=== PATIENT | male | born 1985 | race Caucasian/White ===

== ENCOUNTER 2022-06-25 08:08 | Emergency (ER) | payer OTHER, SELFPAY ==
[2022-06-25 08:11] VITALS: BP 174/86; PULSE 63; O2SAT 100
[2022-06-25 08:15] VITALS: BP 128/70; PULSE 68; RESP 16; TEMP 36.1; O2SAT 98; BMI 25.8
--- NOTE | 2022-06-25 08:33 | ED.GENADULT ---
HPI - General Adult General Chief complaint: Back Pain/Injury Stated complaint: BACK PAIN,NO INJURY PER EMS Time Seen by Provider: 06/25/22 08:33 Source: patient and EMS Mode of arrival: EMS Limitations: no limitations History of Present Illness HPI narrative: Patient is a 36 year old male presenting to the emergency department today with right sided back pain. Patient states that he sat down on his toilet to have a BM when he had sharp right sided back pain. Patient states that as he lays there, the pain is getting much better. Patient states that he was having a similar issue on the left side of his body that radiated into his leg. Patient states he has been seeing his PCP for that issue but not a respiratory care specialist. Patient denies any dizziness, lightheadedness, abdominal pain, nausea, vomiting, fever, chills, blurry vision, double vision, loss of vision, chest pain, difficulty breathing, shortness of breath, night sweats, pain with urination, increased urinary frequency, increased urinary urgency, blood in his urine or stool, syncope or a near syncopal episode, recent trauma or falls, bowel incontinence, bladder incontinence, bowel retention, bladder retention, or any other complaints at this time. Onset (ago): hour(s) Location: back Radiation: non-radiation Severity: mild Severity scale (1-10): 3 Quality: aching Pain Consistency: constant Relieving factors: none Exacerbating factors: movement Associated symptoms: denies other symptoms Treatments prior to arrival: none Related Data Previous Rx's Medication Instructions Recorded cyclobenzaprine 5 mg tablet 5 mg PO TID PRN muscle spasm 7 06/25/22 days #21 tabs Allergies Allergy/AdvReac Type Severity Reaction Status Date / Time amoxicillin AdvReac Gastrointestinal Verified 06/25/22 08:14 Upset Review of Systems Constitutional: Constitutional: Reports no additional constitutional complaints, Denies chills, Denies fever(s) and Denies night sweats Eyes: Eyes: Reports no additional eye complaints, Denies blurry vision, Denies change in vision, Denies diplopia, Denies eye discharge, Denies loss of vision and Denies eye pain ENT: Denies dizziness Cardiovascular: Cardiovascular: Reports no additional cardiovascular complaints, Denies chest pain, Denies lightheadedness, Denies Loss of Consciousness and Denies dyspnea Respiratory: Respiratory: Reports no additional respiratory complaints and Denies dyspnea Gastrointestinal: Gastrointestinal: Reports no additional gastrointestinal complaints, Denies abdominal pain, Denies melena, Denies hematochezia, Denies change in bowel habits and Denies change in stool character Genitourinary: Genitourinary: Reports no additional male genitourinary complaints, Denies hematuria, Denies oliguria, Denies difficulty urinating, Denies dysuria, Denies urinary frequency, Denies urinary hesitancy, Denies urinary incontinence and Denies urinary urgency Musculoskeletal: Musculoskeletal: Reports no additional musculoskeletal complaints, Reports back pain, Denies numbness and Denies tingling Neurologic: Denies dizziness, Denies loss of vision, Denies numbness and Denies tingling Psychiatric: Psychiatric: Reports no additional psychiatric complaints Endocrine: Endocrine: Reports no additional endocrine complaints Hematologic/Lymphatic: Hematologic/Lymphatic: Reports no additional hematologic/lymphatic complaints Allergic/Immunologic: Allergic/Immunologic: Reports no additional allergic/immunologic complaints [facility] Past Medical History Attestation statement: The following information was validated with the patient. Source: old records reviewed Social History Social History Advance Directives: No Advance Directives Information Provided: No Physical Exam ED Vital Signs: Vital Signs - 24 hr 06/25/22 08:15 Temperature 96.9 F Pulse Rate 68 Respiratory Rate 16 Blood Pressure 128/70 Pulse Oximetry 98 Oxygen Delivery Method Room Air BMI result Body Mass Index 25.8 Const General: cooperative, no acute distress, alert and awake Nutritional Appearance: well nourished Orientation/consciousness: patient oriented x3 Limitations: no limitations [facility] Head: Yes normal to inspection and Yes atraumatic Ears: hearing grossly normal bilaterally and external ears normal General nose exam: Normal external nose present, no nasal discharge noted and no epistaxis Face and sinus: Yes normal facial exam, No abrasion and No laceration Mouth: Normal oral and palatal mucosa present, no drooling and no muffled voice Eyes General: appearance normal, both eyes and all related structures Periorbital: periorbital findings normal Eyelids: Yes eyelids normal Conjunctivae: conjunctivae normal Pupils: Equal, round and reactive pupils present EOM: EOMs intact bilaterally Neck Neck: Yes normal visual inspection, Yes full ROM and Yes no lymphadenopathy Chest Chest palpation & inspection: normal inspection of the chest Resp Effort & Inspection: normal respiratory effort and able to speak in complete sentences Auscultation: clear to auscultation bilaterally Cardio Rate: regular rate Rhythm: regular rhythm GI Inspection: Yes normal to inspection General: Yes no CVA tenderness Back/Spine/Pelvis Back: no CVA tenderness Cervical Spine: normal cervical lordosis and cervical ROM normal Thoracic/Lumbar Spine: thoracic and lumbar spine normal to inspection and thoraco-lumbar ROM normal Pelvis: no pain with anterior-posterior compression Neuro General: patient oriented x3 and moves all extremities Cranial nerves: Yes Equal, round and reactive pupils present Cognition (Neuro): normal cognition Motor exam (neuro): 5/5 motor strength present throughout Sensory Exam: Normal double simultaneous stimulation for sensation Coordination: [id number] test normal Extrem General: Yes normal to inspection, Yes full ROM and Yes capillary refill normal Psych Appearance: grossly normal Mental Status: mental status grossly normal Affect: normal affect Attitude: cooperative Thought process: Normal thought process present Thought content: Normal thought content present Insight: Good insight present (Psych) Medical Decision Making MDM Narrative Medical decision making narrative: Patient is a 36 year old male presenting to the emergency department today with right sided back pain. Patient's physical exam was unremarkable. I explained my physical exam findings as well as all test results to the patient. I answered all questions asked by the patient. Patient received PO Flexeril which he stated helped his symptoms significantly. I stressed the importance of the patient taking his medication as prescribed. I stressed the importance of the patient following up with his primary care provider and a respiratory care specialist. I stressed the importance of the patient returning to the emergency department immediately if his symptoms were to worsen or if he were to develop any dizziness, shortness of breath, difficulty breathing, chest pain, blurry vision, loss of vision, nausea, vomiting, abdominal pain, fever, chills, back pain, or any other complaints. Patient verbalized agreement and understanding with this treatment plan and discharge. Differential Diagnosis Differential Diagnosis: back pain Medical Records Medical records reviewed: Yes I reviewed the patient's medical records. Discharge Plan Discharge Clinical Impression: Back pain Patient Disposition: Home, Self-Care Instructions: Back Pain (ED) Additional Instructions: Follow up with your primary care provider and a respiratory care specialist. Return to the emergency department immediately if your symptoms worsen or if you develop any dizziness, shortness of breath, difficulty breathing, chest pain, blurry vision, loss of vision, nausea, vomiting, abdominal pain, fever, chills, back pain, or any other complaints. Prescriptions: New cyclobenzaprine 5 mg tablet 5 mg PO TID PRN (Reason: muscle spasm) 7 Days Qty: 21 0RF Referrals: [facility] [place] Family Medicine [Provider Group] (Call to establish and follow up with a primary care provider. If you already have a primary care provider, please follow up with them. ) [facility] [place] Primary Care, [facility] [Provider Group] (Call to establish and follow up with a primary care provider. If you already have a primary care provider, please follow up with them. ) [facility] [place] [facility] [Provider Group] (Call to establish and follow up with a primary care provider. If you already have a primary care provider, please follow up with them. ) [facility] [Provider Group] (Call to follow up and establish with a respiratory care specialist. ) Stand Alone Forms: Work/School Release Interventions: ED Discharge Assessment Last Done: 06/25/22 09:18 Print Language: [place]
[2022-06-25] MEDS: Cyclobenzaprine HCl 5 MG TABLET PO (09:02)
--- NOTE | 2022-06-25 09:17 | PC.NURSE ---
PT AWAKE, ALERT AND ORIENTED X 3. SKIN WARM AND DRY. REPS UNLABORED. PT AMBULATORY, GCS 15.GAIT STEADY NO ACUTE DISTRESS NOTED EVALUATED BY PROVIDER BLANCA. MEDICATED ORDERED. PLAN IS FOR DC HOME AND PT AGREEABLE
== END 2022-06-25 09:23 | disposition home or self-care (01) ==
PROVIDERS: Emergency Provider Emergency Medicine
DX: M54.50 Low back pain, unspecified (principal)
CPT/HCPCS: 99283

== ENCOUNTER 2022-11-19 20:59 | Emergency (ER) | payer OTHER, SELFPAY ==
[2022-11-19 21:01] VITALS: BP 119/49; PULSE 66; RESP 20; TEMP 36.3; O2SAT 100; BMI 28.8
--- NOTE | 2022-11-19 21:20 | ED.WOUNDLAC ---
HPI - Wound/Laceration General Chief Complaint: Wound/Laceration Stated Complaint: lac of index finger Time Seen by Provider: 11/19/22 21:07 Source: patient Mode of arrival: ambulatory Limitations: no limitations History of Present Illness HPI narrative: this is a 37-year-old male no significant medical history presenting with a laceration to his right index finger status post cutting himself accidentally with a knife while will washing dishes. Patient tells me that he accidentally poked himself with a knife while washing it in the sink. He tells me he felt like he was going to pass out because he passes out when he sees blood. He did not pass out however. He told me he felt lightheaded however that has resolved. Upon patient's arrival wound was cleansed and dressing was applied, as was pressure. Patient is not on blood thinners. Denies numbness, tingling. Tells me he feels fine at this time. Patient freely moving his finger upon history taking. Related Data Previous Rx's Medication Instructions Recorded cyclobenzaprine 5 mg tablet 5 mg PO TID PRN muscle spasm 7 06/25/22 days #21 tabs Allergies Allergy/AdvReac Type Severity Reaction Status Date / Time amoxicillin AdvReac Gastrointestinal Verified 11/19/22 21:06 Upset Review of Systems Review of Systems: Constitutional : No Weight loss, No Fever, No Chills, No Fatigue, No Malaise ENT/Mouth : No sore throat, No Rhinorrhea Eyes: No Eye Pain, No Swelling, No Redness Cardiovascular : No Chest Pain, No SOB, No Dyspnea on Exertion, No Orthopnea, No Edema, No Palpitations Respiratory : No Cough, No Sputum, No Wheezing Gastrointestinal : No Nausea, No Vomiting, No Diarrhea, No Constipation, No abdominal Pain, No Hematochezia, No Melena Genitourinary : No Dysuria, No Urinary Frequency, No Hematuria, Musculoskeletal : No joint pain, No Myalgias, No Joint Swelling Skin : No Skin Lesions, No rash, + laceration Neuro : No Weakness, No Numbness, No Dizziness, No Headache Psych : No Anxiety/Panic, No Depression All other systems reviewed and are negative Yes all other systems are reviewed and are negative [facility] Past Medical History Attestation statement: The following information was validated with the patient. Source: old records reviewed and nursing notes reviewed Social History Social History Advance Directives: No Advance Directives Information Provided: No Physical Exam Vital Signs: Vital Signs: Last Vital Signs Temp 97.3 F 11/19/22 21:01 Pulse 66 11/19/22 21:01 Resp 20 11/19/22 21:01 BP 119/49 L 11/19/22 21:01 Pulse Ox 100 11/19/22 21:01 O2 Del Method 11/19/22 21:01 BMI result Body Mass Index 28.8 Vital signs stable Appearance: Alert.? Oriented X3.? No acute distress.? Head: Normocephalic, atraumatic, no step-offs or deformities Eyes: Pupils equal, round and reactive to light.? ENT: Pharynx normal.? Neck: Normal inspection.? Neck supple.? CVS: Normal heart rate and rhythm.? Pulses normal.? Respiratory: No respiratory distress.? Breath sounds normal.? Abdomen: Soft and nontender.? Skin: Skin warm and dry.? Normal skin color.? Normal skin turgor.? Extremities: 5/5 strength to bilateral upper and lower extremities + 2 cm linear laceration to right dorsal aspect of index finger, without foreign bodies. 2+ radial pulses equal bilateral. Capillary refill less than 2 seconds equal bilateral upper extremities. Full range of motion to all fingers without difficulty. No wrist drop. Neuro: Oriented X 3.? No motor deficit.? No sensory deficit. CN 2-12 intact Course Reevaluation(s) Reevaluation #1: Laceration was repaired using Dermabond, patient tolerated procedure well. Edges approximated nicely. At this time patient will be discharged home with he was placed in a finger splint to prevent him from bending his finger, advised him to keep this on for 24 hours. Educated on worrisome signs and symptoms and when to return. At this time I feel comfortable discharge home. Time: 21:24 Medical Decision Making Medical Decision Making [facility] Narrative: 2121 37-year-old male presents with superficial laceration to right index finger just prior to arrival with knife. Not up-to-date on tetanus shot. No significant medical history is. Denies numbness and tingling 2 cm linear laceration to right dorsal aspect of index finger, without foreign bodies. 2+ radial pulses equal bilateral. Capillary refill less than 2 seconds equal bilateral upper extremities. Full range of motion to all fingers without difficulty. No wrist drop. likely simple laceration. Unlikely foreign body, fracture dislocation. No signs of neurovascular compromise or ligament and tendon injury. Spoke to patient about repair options such as sutures and Dermabond, this is a very superficial laceration therefore I suspect Dermabond is a better option however did offer sutures. Patient would prefer Dermabond. Differential Diagnosis Differential Diagnoses: The differential diagnosis associated with the presentation includes likely simple laceration. Unlikely foreign body, fracture dislocation. No signs of neurovascular compromise or ligament and tendon injury. Admission/Observation Consideration of admission/observation: Escalation of care including admission/observation considered Core Measures AMI core measures followed: Yes Measure exclusions: not indicated Discharge Plan Discharge Clinical Impression: Laceration Patient Disposition: Home, Self-Care Instructions: Laceration Without Closure (ED) Additional Instructions: Take your medications as prescribed. If you were prescribed antibiotics today, it is important that you take your medication to their entirety, do not skip any doses, do not finish them early. Follow-up with your primary care provider this week. Return to the emergency department with new or worsening symptoms. Such as fevers, chills, chest pain, shortness of breath, nausea, vomiting, dizziness, headache, vision changes, lethargy In case of emergency call 911 Prescriptions: No Action cyclobenzaprine 5 mg tablet 5 mg PO TID PRN (Reason: muscle spasm) 7 Days Qty: 21 0RF Referrals: Physician,Unknown J [Primary Care Provider] - 2 days Stand Alone Forms: Work/School Release
[2022-11-19] MEDS: Diphth,Pertus(ACell),Tet Adult 0.5 ML SYRINGE IM (21:26)
--- NOTE | 2022-11-19 21:39 | PC.NURSE ---
wound close with exofin by provider, non stick dressing applied, followed by non-stick dressing. fingersplint and kerlix- pt alert oriented, NAD at discharge, tetanus updated vis given
== END 2022-11-19 21:48 | disposition home or self-care (01) ==
PROVIDERS: Emergency Provider Emergency Medicine Emergency Medical Services
DX: S61.210A Laceration without foreign body of right index finger without damage to nail, initial encounter (principal); W26.0XXA Contact with knife, initial encounter; Y93.G1 Activity, food preparation and clean up; Y92.010 Kitchen of single-family (private) house as the place of occurrence of the external cause; Y99.9 Unspecified external cause status
CPT/HCPCS: 12001; 90471; 90715; 99282; 99284

== ENCOUNTER 2023-10-28 07:57 | Observation (INO) | payer OTHER, SELFPAY ==
--- NOTE | ~2023-10-28 | CT_ITS ---
EXAMINATION: CT HEAD WITHOUT CONTRAST CLINICAL INFORMATION: Weakness COMPARISON: None available. TECHNIQUE: Contiguous axial imaging was performed from the skull base to vertex without intravenous administration of contrast. This CT examination was performed using dose optimization techniques as appropriate, variously including the following: *Automated exposure control *Adjustment of mA and/or kV according to patient size (this includes techniques or standardized protocols for targeted exams where dose is matched to indication/reason for exam; i.e. extremities or head) *Use of iterative reconstruction technique DLP: 648 mGy-cm FINDINGS: There is no intracranial hemorrhage or evidence of acute territorial infarction. There is no mass effect or midline shift. No extra-axial fluid collection. Hassan-white matter differentiation is preserved. The ventricles are normal. The paranasal sinuses are well aerated and clear. The mastoid air cells are clear. No acute osseous abnormality. CT/CT head/brain wo IV con IMPRESSION: No acute intracranial pathology.
--- NOTE | ~2023-10-28 | XR_ITS ---
EXAMINATION: XR CHEST CLINICAL INFORMATION: Weakness COMPARISON: None available. TECHNIQUE: 2 views of the chest were obtained. FINDINGS: No significant abnormality is noted involving the heart, lungs, mediastinum, bony thorax or soft tissues. Elevation of the right hemidiaphragm is noted. XR/XR chest 2V IMPRESSION: No acute cardiopulmonary disease.
[2023-10-28 07:59] VITALS: BP 153/111; PULSE 70; RESP 18; TEMP 36.4; O2SAT 98; BMI 29.8
--- NOTE | 2023-10-28 09:15 | ED_ITS ---
HPI - General Adult General Chief complaint: Fall Stated complaint: fall Time Seen by Provider: 10/28/23 09:14 Source: patient and family (patient's fiance) Mode of arrival: ambulatory Limitations: no limitations History of Present Illness HPI narrative: Patient is a 38 year old assigned male at with a history of left upper leg nerve pain presenting to the emergency department today with fully body weakness and falls. Patient states that he was having left upper leg pain for awhile and following with a product distribution specialist for it where he was diagnosed with left upper leg nerve injury. Patient states that he is on gabapentin for it but it isn't making it better. Patient states that he had an EMG recently that was OK aside from the left upper leg issue. Patient denies any head strike, loss of conciseness, dizziness, lightheadedness, abdominal pain, nausea, vomiting, fever, chills, blurry vision, double vision, loss of vision, chest pain, difficulty breathing, shortness of breath, back pain, night sweats, pain with urination, increased urinary frequency, increased urinary urgency, blood in his urine or stool, syncope or a near syncopal episode, bowel incontinence, bladder incontinence, bowel retention, bladder retention, or any other complaints at this time. Onset (ago): day(s) Severity: mild Relieving factors: none Exacerbating factors: none Associated symptoms: weakness Treatments prior to arrival: none Related Data Previous Rx's Medication Instructions Recorded cyclobenzaprine 5 mg tablet 5 mg PO TID PRN muscle spasm 7 06/25/22 days #21 tabs Allergies Allergy/AdvReac Type Severity Reaction Status Date / Time amoxicillin AdvReac Gastrointestinal Verified 10/28/23 08:04 Upset Review of Systems 2 Constitutional: Constitutional: Reports no additional constitutional complaints, Denies chills, Denies fever(s), Denies night sweats and Reports weakness Eyes: Eyes: Reports no additional eye complaints, Denies blurry vision, Denies change in vision, Denies diplopia, Denies eye discharge, Denies loss of vision and Denies eye pain ENT: Denies dizziness Cardiovascular: Cardiovascular: Reports no additional cardiovascular complaints, Denies chest pain, Denies lightheadedness, Denies Loss of Consciousness and Denies dyspnea Respiratory: Respiratory: Reports no additional respiratory complaints and Denies dyspnea Gastrointestinal: Gastrointestinal: Reports no additional gastrointestinal complaints, Denies abdominal pain, Denies melena, Denies hematochezia, Denies change in bowel habits and Denies change in stool character Genitourinary: Genitourinary: Reports no additional male genitourinary complaints, Denies hematuria, Denies oliguria, Denies difficulty urinating, Denies dysuria, Denies urinary frequency, Denies urinary hesitancy, Denies urinary incontinence and Denies urinary urgency Musculoskeletal: Musculoskeletal: Reports no additional musculoskeletal complaints, Denies numbness and Denies tingling Neurologic: Denies dizziness, Denies loss of vision, Denies numbness, Denies tingling and Reports weakness Psychiatric: Psychiatric: Reports no additional psychiatric complaints Endocrine: Endocrine: Reports no additional endocrine complaints Hematologic/Lymphatic: Hematologic/Lymphatic: Reports no additional hematologic/lymphatic complaints Allergic/Immunologic: Allergic/Immunologic: Reports no additional allergic/immunologic complaints PMFSH Past Medical History Attestation statement: The following information was validated with the patient. Source: old records reviewed and nursing notes reviewed Onset Date is defined in the Problem List Problems that require an onset date and time if occurred within 24 hrs of arrival to the ED Aortic Dissection and Rupture; Neurologic impairment; Cardiopulmonary Arrest; Endotracheal Intubation; Insertion or Replacement of Mechanical Circulatory Assist Device Social History Social History Smoked in Last 30 Days: Yes Use of substances other than those prescribed or required for medical reasons: No Advance Directives: No Physical Exam ED Vital Signs: Vital Signs - 24 hr 10/28/23 07:59 10/28/23 12:00 10/28/23 12:00 Temperature 97.6 F Pulse Rate 70 64 55 Respiratory Rate 18 15 14 Blood Pressure 153/111 H 135/73 Pulse Oximetry 98 98 Oxygen Delivery Method Room Air Room Air 10/28/23 13:53 Temperature 98.4 F Pulse Rate 70 Respiratory Rate 18 Blood Pressure 129/74 Pulse Oximetry 98 Oxygen Delivery Method Room Air BMI result Body Mass Index 29.8 Const General: cooperative, no acute distress, alert and awake Nutritional Appearance: well nourished Orientation/consciousness: patient oriented x3 Limitations: no limitations HENMT Head: Yes normal to inspection and Yes atraumatic Ears: hearing grossly normal bilaterally and external ears normal General nose exam: Normal external nose present, no nasal discharge noted and no epistaxis Face and sinus: Yes normal facial exam, No abrasion and No laceration Mouth: Normal oral and palatal mucosa present, no drooling and no muffled voice Eyes General: appearance normal, both eyes and all related structures Periorbital: periorbital findings normal Eyelids: Yes eyelids normal Conjunctivae: conjunctivae normal Pupils: Equal, round and reactive pupils present EOM: EOMs intact bilaterally Neck Neck: Yes normal visual inspection, Yes full ROM and Yes no lymphadenopathy Chest Chest palpation & inspection: normal inspection of the chest Resp Effort & Inspection: normal respiratory effort and able to speak in complete sentences GI Inspection: Yes normal to inspection Neuro General: patient oriented x3 and moves all extremities Cranial nerves: Yes Equal, round and reactive pupils present Cognition (Neuro): normal cognition Motor exam (neuro): 5/5 motor strength present throughout Sensory Exam: Normal double simultaneous stimulation for sensation Coordination: [id number] test normal Extrem General: Yes normal to inspection, Yes full ROM and Yes capillary refill normal Psych Appearance: grossly normal Mental Status: mental status grossly normal Affect: normal affect Attitude: cooperative Thought process: Normal thought process present Thought content: Normal thought content present Insight: Good insight present (Psych) Course Reevaluation(s) Reevaluation #1: Lower extremities weakness, no urinary or stool incontinence, CPK is elevated patient is receiving IV fluids and K replacement, awaiting for PT evaluation, patient will be admitted for IV hydration and repeat labs and reassessment. Time: 15:00 Medications Administered Discontinued Medications Generic Name Dose Route Start Last Admin Trade Name Freq PRN Reason Stop Dose Admin Sodium Chloride 1,000 mls @ 999 mls/hr 10/28/23 09:30 10/28/23 12:24 Ns IV 10/28/23 10:30 Infused .Q1H1M MARI Infusion Potassium Chloride 10 meq in 100 mls @ 100 mls/hr 10/28/23 11:28 10/28/23 13:15 Potassium Chloride/H20 IV 10/28/23 12:27 Infused ONCE ONE Infusion Sodium Chloride 1,000 mls @ 999 mls/hr 10/28/23 11:29 10/28/23 13:15 Ns IV 10/28/23 12:29 Infused .Q1H1M ONE Infusion Sodium Chloride 1,000 mls @ 999 mls/hr 10/28/23 13:12 10/28/23 14:44 Ns IV 10/28/23 14:12 Infused .Q1H1M ONE Infusion Potassium Chloride 40 meq 10/28/23 11:28 10/28/23 12:12 Potassium Chloride Packet 20 Meq Packet PO 10/28/23 11:29 40 meq ONCE ONE Administration Medical Decision Making Medical Decision Making [facility] Narrative: Patient is a 38 year old assigned male at with a history of left upper leg nerve issue presenting to the emergency department today with weakness. Patient's physical exam showed some weakness but no focal neuro deficits. Patient's blood work showed a decreased potassium of 2.5 and an elevated total CK of 647. Patient's EKG was unremarkable. Patient's chest x-ray and head CT showed no acute process. I consulted with my attending physician, Dr. Herrera, who recommended giving the patient potassium, IV fluids, repeating labs, and then admitting him to the hospitalist. Hospitalist team agreed to admission. I explained my physical exam findings as well as all test results to the patient and the patient's fiance. I answered all questions asked by the patient and the patient's fiance. Patient and the patient's fiance verbalized agreement and understanding with this treatment plan and admission. Differential Diagnosis Differential Diagnoses: The differential diagnosis associated with the presentation includes Rhabdo Weakness Hypokalemia Admission/Observation Consideration of admission/observation: Escalation of care including admission/observation considered Patient to be admitted. Consult Healthcare Provider Management of the patient was discussed with: Hospitalist (agreed to admission.) Lab Data [facility] Lab Attestation statement: I reviewed the patient's lab results. My interpretation of these results are in the MDM Rationale portion of this note. 10/28/23 10:59 10/28/23 10:59 Labs: Lab Results 10/28/23 10/28/23 Range/Units 10:59 11:04 WBC 8.2 (4.8-10.8) X10*3/uL RBC 5.12 (4.60-5.80) X10*6/uL Hgb 14.6 (14.0-18.0) g/dl Hct 42.8 (42.0-52.0) % MCV 83.6 (80.0-98.0) fL MCH 28.5 (27.0-33.0) pg MCHC 34.1 (31.0-36.0) g/dl RDW 12.8 (11.0-16.0) % Plt Count 175 (160-400) X10*3/uL MPV 11.4 (9.4-12.4) fL Immature Gran % (Auto) 1.6 H (0.0-0.4) % Neut % (Auto) 71.6 (45-73) % Lymph % (Auto) 18.0 L (20-40) % [place] % (Auto) 5.1 (2-11) % Eos % (Auto) 3.3 (0-4) % Baso % (Auto) 0.4 (0-2) % Lymph # (Auto) 1.5 (1.2-4.9) X10*3/uL [place] # (Auto) 0.4 (0.1-1.2) X10*3/uL Eos # (Auto) 0.3 (0.0-0.4) X10*3/uL Baso # (Auto) 0.0 (0.0-0.2) X10*3/uL Abs Immat Gran (auto) 0.13 H (0.00-0.03) X10*3/uL Absolute Neuts (auto) 5.9 (2.0-8.3) x10*3/uL Absolute Nucleated RBC 0.000 (0.0-0.012) X10*3/uL Nucleated RBC % (auto) 0.0 (0.0-0.2) /100WBC Sodium 142 (135-145) mmol/L Potassium 2.5 L* (3.3-5.1) mmol/L Chloride 109 H (96-108) mmol/L Carbon Dioxide 27 (22-29) mmol/L Anion Gap 9 L (12-20) BUN 14 (9-16) mg/dL Creatinine 0.77 (0.5-1.4) mg/dL Estim Creat Clear Calc 148.3 Estimated GFR > 60 Random Glucose 116 H (60-115) mg/dL Calcium 8.8 (8.4-10.2) mg/dL Magnesium 1.8 (1.6-2.6) mg/dL Total Bilirubin 0.3 (0.0-1.0) mg/dL AST 40 H (5-37) U/L ALT 38 (0-40) U/L Alkaline Phosphatase 96 (39-117) U/L Total Creatine Kinase 647 H (38-174) U/L Total Protein 6.8 (6.5-8.0) g/dL Albumin 3.9 (3.5-5.0) g/dL COVID-19 (CHIDI) Negative (Negative) COVID-19 Clin Com See Note Monoscreen Negative (Negative) Influenza Type A (JAYESH) Negative (Negative) Influenza Type B (JAYESH) Negative (Negative) Influenza A & B Note See Note Independent Interpretation I performed an independent interpretation of an: EKG, Plain X-Ray and CT Scan Interpretation: My interpretation is in agreement with the radiologist's impression of these imaging studies. - EXAMINATION: CT HEAD WITHOUT CONTRAST CLINICAL INFORMATION: Weakness COMPARISON: None available. TECHNIQUE: Contiguous axial imaging was performed from the skull base to vertex without intravenous administration of contrast. This CT examination was performed using dose optimization techniques as appropriate, variously including the following: *Automated exposure control *Adjustment of mA and/or kV according to patient size (this includes techniques or standardized protocols for targeted exams where dose is matched to indication/reason for exam; i.e. extremities or head) *Use of iterative reconstruction technique DLP: 648 mGy-cm FINDINGS: There is no intracranial hemorrhage or evidence of acute territorial infarction. There is no mass effect or midline shift. No extra-axial fluid collection. Hassan-white matter differentiation is preserved. The ventricles are normal. The paranasal sinuses are well aerated and clear. The mastoid air cells are clear. No acute osseous abnormality. CT/CT head/brain wo IV con IMPRESSION: No acute intracranial pathology. Dictated By: Cinda Nagel MD Signed By: Electronically signed by Cinda Nagel MD 10/28/23 1008 - EXAMINATION: XR CHEST CLINICAL INFORMATION: Weakness COMPARISON: None available. TECHNIQUE: 2 views of the chest were obtained. FINDINGS: No significant abnormality is noted involving the heart, lungs, mediastinum, bony thorax or soft tissues. Elevation of the right hemidiaphragm is noted. XR/XR chest 2V IMPRESSION: No acute cardiopulmonary disease. Dictated By: Cinda Nagel MD Signed By: Electronically signed by Cinda Nagel MD 10/28/23 1004 Radiology Impression Discussion of test interpretation with radiology: I have reviewed the radiologist's reading. Independent Historian Clinical information obtained from an independent historian. History obtained from or confirmed by: Other (patient's fiance provided additional history and confirmed the history provided by the patient.) Critical Care Time Critical Care Time Critical Care Time: Yes Total Critical Care Time: 45 Attestation: I spent 45 minutes of Critical Care Time with this patient. This does not include time spent on separately reported billable procedures. Discharge Plan Discharge Clinical Impression: Hypokalemia, Elevated CK, Weakness Patient Disposition: Admitted As Inpatient
--- NOTE | 2023-10-28 09:22 | ECG_ITS ---
Test Reason : weakness Blood Pressure : / mmHG Vent. Rate : 059 BPM Atrial Rate : 059 BPM P-R Int : 142 ms QRS Dur : 088 ms QT Int : 426 ms P-R-T Axes : 059 036 007 degrees QTc Int : 421 ms Sinus bradycardia Otherwise normal ECG No previous ECGs available Referred By: Kelly Box Electronically Signed By:STEPHEN BROWN
[2023-10-28] MEDS: 0.9 % Sodium Chloride 1,000 ML 999 ML IV ×3 (11:00→13:37)
--- NOTE | 2023-10-28 11:05 | PC.NURSE ---
EKG DONE AT 1105
[2023-10-28 11:07] LABS: MANUAL DIFF FLAG NO
[2023-10-28 11:12] LABS: Basophils Percent Auto 0.4 % (0-2); Eosinophils Absolute Auto 0.3 X10*3/uL (0.0-0.4); Eosinophils Percent Auto 3.3 % (0-4); Hematocrit 42.8 % (42.0-52.0); Hemoglobin 14.6 g/dl (14.0-18.0); Imm Gran Abs Auto 0.13 X10*3/uL (0.00-0.03); Imm Gran Pct Auto 1.6 % (0.0-0.4); Lymphocytes Absolute Auto 1.5 X10*3/uL (1.2-4.9); Mean Corpuscular HGB Conc 34.1 g/dl (31.0-36.0); Mean Corpuscular Hemoglobin 28.5 pg (27.0-33.0); Mean Corpuscular Volume 83.6 fL (80.0-98.0); Mean Platelet Volume 11.4 fL (9.4-12.4); Monocytes Absolute Auto 0.4 X10*3/uL (0.1-1.2); Monocytes Percent Auto 5.1 % (2-11); Neutrophils Absolute Auto 5.9 x10*3/uL (2.0-8.3); Neutrophils Percent Auto 71.6 % (45-73); Platelet Count 175 X10*3/uL (160-400); Red Blood Count 5.12 X10*6/uL (4.60-5.80); Red Cell Distribution Width 12.8 % (11.0-16.0); White Blood Count 8.2 X10*3/uL (4.8-10.8)
[2023-10-28 11:26] LABS: Alanine Aminotransferase 38 U/L (0-40); Albumin Level 3.9 g/dL (3.5-5.0); Alkaline Phosphatase 96 U/L (39-117); Anion Gap 9 (12-20); Aspartate Amino Transferase 40 U/L (5-37); Bilirubin Total 0.3 mg/dL (0.0-1.0); Blood Urea Nitrogen 14 mg/dL (9-16); Calcium 8.8 mg/dL (8.4-10.2); Carbon Dioxide 27 mmol/L (22-29); Chloride 109 mmol/L (96-108); Creatinine Clr Calc Pharmacy 148.3; Estimated Glomerular Filt Rate > 60; Glucose Random 116 mg/dL (60-115); Magnesium 1.8 mg/dL (1.6-2.6); Potassium 2.5 mmol/L (3.3-5.1); Sodium 142 mmol/L (135-145); Total Protein 6.8 g/dL (6.5-8.0)
[2023-10-28 11:27] LABS: COVID-19 Test Negative (Negative); IDNOW Serial# 152EDE1D
[2023-10-28 11:27] LABS: IDNOW Serial# 9DB6401D; Influenza A Negative (Negative); Influenza B2 Negative (Negative)
[2023-10-28 11:35] LABS: Monotest Negative (Negative)
[2023-10-28 12:00] VITALS: BP 135/73; PULSE 55; PULSE 64; RESP 14; RESP 15; O2SAT 98
[2023-10-28] MEDS: Potassium Chloride Packet 20 MEQ PACKET 40 MEQ PO (12:12)
[2023-10-28] MEDS: Potassium Chloride/H20 10 MEQ/100 ML PIGGYBACK 100 MEQ IV (12:12)
[2023-10-28 13:53] VITALS: BP 129/74; PULSE 70; RESP 18; TEMP 36.9; O2SAT 98
--- NOTE | 2023-10-28 15:03 | PC.NURSE ---
HOSP MOLD [employer]PER HELPER (JEAN PAUL) AT BEDSIDE. PT AWARE OF PLAN OF CARE.
[2023-10-28 15:13] LABS: Anion Gap 8 (12-20); Blood Urea Nitrogen 11 mg/dL (9-16); Calcium 7.6 mg/dL (8.4-10.2); Carbon Dioxide 25 mmol/L (22-29); Chloride 114 mmol/L (96-108); Creatinine Clr Calc Pharmacy 165.5; Estimated Glomerular Filt Rate > 60; Glucose Random 95 mg/dL (60-115); Potassium 4.3 mmol/L (3.3-5.1); Sodium 143 mmol/L (135-145)
--- NOTE | 2023-10-28 15:31 | P.HPHOSP_ITS ---
History of Present Illness Date of Service: 10/28/23 Chief Complaint: Weakness 38-year-old man presenting to the ER with bilateral thigh weakness and upper body weakness that started yesterday. He reports that he was unable to get up and walk we tried to get up he slid down to the floor. During the interview in the ER patient was not even able to bend his left leg all the way. Reported severe weakness. He did report he has a history of left upper leg nerve pain and had a recent EMG at [facility], he was supposed to follow-up for results today but came to the ER. He was on gabapentin and reports that it is somewhat helped this was started within the last month. He denies recent travel, sick contacts, recent illness, fever, chills, nausea, vomiting. He reported 1 episode of diarrhea this morning. No new medications other than the gabapentin, no drugs, alcohol. No heavy lifting in the gym or otherwise. In the ER his potassium was noted to be 2.5, total creatinine kinase 647, no fever leukocytosis, head CT and chest x-ray negative for acute abnormality. He had an MRI at [facility] in August of 2022 that showed mild lumbar spondylosis at L5-S1. He will be placed on observation for monitoring of mild rhabdomyolysis. Review of Systems 2 Review of Systems: Denies any recent fever chills or decrease in appetite respiratory denies any shortness of breath or cough cardiovascular denies chest pain gastrointestinal denies any dysphagia abdominal pain nausea vomiting or diarrhea genitourinary denies any dysuria frequency or hematuria musculoskeletal denies any joint pain or swelling neuropsych denies any weakness or seizures all other systems reviewed are negative [facility] Medical History (Updated 10/28/23 @ 15:37 by Allison Gaytan NP) Culp's palsy History of opioid abuse GERD (gastroesophageal reflux disease) ADHD Pertinent family history: Denies cardiac disease Social History Patient Tobacco Use Status: Former Tobacco user Smoked in Last 30 Days: No Second Hand Smoke Exposure: No Use of substances other than those prescribed or required for medical reasons: No Currently Displaying Signs/Symptoms of Drug Intoxication Withdrawal: No Advance Directives: No Nutrition Risks: No Nutritional Risk service: No Meds Allergies Allergy/AdvReac Type Severity Reaction Status Date / Time amoxicillin AdvReac Gastrointestinal Verified 10/28/23 08:04 Upset Active Medications: Current Medications Enoxaparin Sodium (Enoxaparin Sodium 40 Mg/0.4 Ml Syringe) 40 mg SUBCUT Q24H [facility] Sodium Chloride (0.9 % Sodium Chloride Flush 3 Ml Syringe) 3 ml IVFLUSH QSHIFT [facility] Home Medications Medication Instructions Recorded Confirmed Last Taken Type buprenorphine 8 mg-naloxone 2 mg 1 film sublingual DAILY 10/28/23 10/28/23 10/28/23 History sublingual film dextroamphetamine-amphetamine ER 2 cap PO QAM 10/28/23 Unknown History 25 mg 24hr capsule,extend release omeprazole 40 mg capsule,delayed 40 mg PO DAILY PRN Heartburn 10/28/23 10/28/23 Unknown History release pregabalin 75 mg capsule 75 mg PO BID 10/28/23 10/28/23 10/27/23 History Physical Exam 2 Vital Signs and Narrative: Vital Signs: Last Vital Signs Temp 98.4 F 10/28/23 13:53 Pulse 70 10/28/23 13:53 Resp 18 10/28/23 13:53 BP 129/74 10/28/23 13:53 Pulse Ox 98 10/28/23 13:53 O2 Del Method Room Air 10/28/23 13:53 BMI result Body Mass Index 29.8 Appearing in no acute distress head is normocephalic atraumatic eyes pupils are PERRLA sclera is anicteric mouth throat mucous membranes are intact and moist neck is supple no lymphadenopathy, no JVD noted lung sounds are clear to auscultation heart regular rate rhythm, clear S1, S2 positive bowel sounds, abdomen is soft, nontender neuro patient is alert x3, no focal deficits Moves all extremities but weakness to legs, no palpable pain to lower back or legs, sensation completely intact to all extremities Results Labs 10/28/23 10:59 10/29/23 07:53 Labs: Laboratory Results - last 24 hr 10/28/23 10/28/23 10/28/23 10:59 11:04 14:40 MCV 83.6 MCH 28.5 MCHC 34.1 RDW 12.8 Plt Count 175 MPV 11.4 Immature Gran % (Auto) 1.6 H Neut % (Auto) 71.6 Lymph % (Auto) 18.0 L [place] % (Auto) 5.1 Eos % (Auto) 3.3 Baso % (Auto) 0.4 Lymph # (Auto) 1.5 [place] # (Auto) 0.4 Eos # (Auto) 0.3 Baso # (Auto) 0.0 Abs Immat Gran (auto) 0.13 H Absolute Neuts (auto) 5.9 Absolute Nucleated RBC 0.000 Nucleated RBC % (auto) 0.0 Anion Gap 9 L 8 L Estim Creat Clear Calc 148.3 165.5 Estimated GFR > 60 > 60 Random Glucose 116 H 95 Calcium 8.8 7.6 L D Magnesium 1.8 Total Bilirubin 0.3 AST 40 H ALT 38 Alkaline Phosphatase 96 Total Creatine Kinase 647 H 551 H Total Protein 6.8 Albumin 3.9 COVID-19 (CHIDI) Negative COVID-19 Clin Com See Note Monoscreen Negative Influenza Type A (JAYESH) Negative Influenza Type B (JAYESH) Negative Influenza A & B Note See Note Imaging Radiologist's Impressions: Impressions Chest X-Ray 10/28/23 09:45 IMPRESSION: No acute cardiopulmonary disease. Head CT 10/28/23 09:52 IMPRESSION: No acute intracranial pathology. Assessment and Plan (1) Weakness: Status: Acute (2) Elevated CK: Status: Acute Plan 38-year-old man presented to the ER with complaints of weakness and difficulty with ambulation. Recent EMG at [facility], unknown diagnosis, started on gabapentin in September of 2023 for nerve pain. Denies recent vigorous exercise or lifting. Lower extremity weakness with mild elevation in CPK History of nerve pain to left lower extremity with recent EMG at [facility] Was started on gabapentin for nerve pain, this could also be causing some mild rhabdomyolysis symptoms although CPK is 647 Completed 3 L of IV fluids and stated he was able to move a little bit better Will continue IV fluids Neurology consultation Check CPK and ESR Hold gabapentin Hypokalemia. Resolved Unknown etiology Patient denied vigorous exercise, vomiting or diarrhea No new medications other than the gabapentin Replaced with oral and IV supplementation History of opioid abuse On Suboxone DVT prophylaxis with Lovenox Full code Observation Quality Stroke Does the patient have a stroke diagnosis?: No VTE Prior VTE?: No VTE Risk Level:: Medical - moderate - high VTE Device Contraindication: Treatment Not Indicated VTE Drug Contraindication: N/A - Med Ordered
[2023-10-28 15:34] LABS: Appearance Urine Clear; Color Urine Yellow; Glucose Urine UA Negative (Negative); Leukocyte Esterase Urine Negative (Negative); Nitrite Urine Negative (Negative); PH 6.5 (5.0-9.0); Specific Gravity - Urine 1.025 (1.005-1.025); Urine Blood Negative (Negative); Urine Ketones Negative (Negative); Urine Protein Trace mg/dL (Neg-Trace)
[2023-10-28 15:38] LABS: Amphetamine Screen Urine Not Detected (Not Detect); Barbiturates, Urine Not Detected (Not Detect); Benzodiazepines Screen Urine Not Detected (Not Detect); Cannabinoid Screen Urine POSITIVE (Not Detect); Cocaine Screen Urine Not Detected (Not Detect); Fentanyl, urine Not Detected (Not Detect); Opiate Screen Urine Not Detected (Not Detect); Phencyclidine Screen Urine Not Detected (Not Detect)
[2023-10-28 16:17] VITALS: BP 113/63; PULSE 70; RESP 12; O2SAT 98
[2023-10-28 16:28] LABS: Erythrocyte Sedimentation Rate 5 MM/HR (0-15)
--- NOTE | 2023-10-28 16:32 | PHA.MEDREC ---
Pharmacy Consult ? Medication Reconciliation Pharmacy has completed the medication reconciliation. Confirmed medication with patient. Pt has not taken Adderall for over a week. Pt stated he was starting Pregablin and was concerned about an interaction between the both. Sandy Duran CPhT
[2023-10-28 16:48] LABS: C Reactive Protein 1.07 mg/dL (< or = 0.50)
[2023-10-28] MEDS: Enoxaparin Sodium 40 MG/0.4 ML SYRINGE SUBCUT (17:15)
[2023-10-28] MEDS: 0.9 % Sodium Chloride 1,000 ML 100 ML IVCONT (17:16)
[2023-10-28 17:23] VITALS: BP 132/66; PULSE 71; RESP 18; TEMP 36.6; O2SAT 97
--- NOTE | 2023-10-28 18:30 | PC.NURSE ---
ate dinner well. no distress.
[2023-10-28 19:00] VITALS: BP 114/50; PULSE 73; RESP 13; TEMP 36.9; O2SAT 98
[2023-10-29] VITALS (8 sets, daily range): BP systolic 109–142; BP diastolic 56–82; PULSE 53–74; RESP 16–18; TEMP 36.1–37.1; O2SAT 96–99; BMI 31.2
[2023-10-29] MEDS: 0.9 % Sodium Chloride 1,000 ML 100 ML IVCONT ×2 (02:58→11:39)
[2023-10-29] MEDS: Buprenorphine/Naloxone 8/2 mg FILM 1 FILM SUBLINGUAL (08:08)
[2023-10-29 08:47] LABS: Anion Gap 11 (12-20); Blood Urea Nitrogen 8 mg/dL (9-16); Calcium 8.6 mg/dL (8.4-10.2); Carbon Dioxide 25 mmol/L (22-29); Chloride 111 mmol/L (96-108); Creatinine Clr Calc Pharmacy 151.4; Estimated Glomerular Filt Rate > 60; Glucose Random 113 mg/dL (60-115); Sodium 143 mmol/L (135-145)
--- NOTE | 2023-10-29 09:14 | MHC.CM.PN ---
ALEXANDER [birth year] Male DX LE Weakness. He is independent with all functional activity at baseline. He lives with his Fiance. The patient's Grandfather and Uncle live with them. A referral has been sent to [facility] Options councilors. The family resource guide and [facility] cares have also been provided. DP home self care. Patient will arrange for transportation home.
[2023-10-29] MEDS: ondansetron HCL 4 MG/2 ML VIAL IVPUSH (12:15)
--- NOTE | 2023-10-29 15:12 | P.DS_ITS ---
DS: Providers Provider Date of Service: 10/29/23 Date of admission: 10/28/23 15:16 Primary care physician: Belia Russell MD Consults: 10/28/23 15:17 Consult to Neurology Routine Consulting Provider: [facility] Reason for consultation: leg weakness DS: Diagnosis Discharge Diagnosis (1) Weakness: Status: Acute (2) Elevated CK: Status: Acute DS: Summary Hospital Course Hospital Course: 38-year-old man presenting to the ER with bilateral thigh weakness and upper body weakness that started yesterday. He reports that he was unable to get up and walk we tried to get up he slid down to the floor. During the interview in the ER patient was not even able to bend his left leg all the way. Reported severe weakness. He did report he has a history of left upper leg nerve pain and had a recent EMG at [facility], he was supposed to follow-up for results today but came to the ER. He was on gabapentin and reports that it is somewhat helped this was started within the last month. He denies recent travel, sick contacts, recent illness, fever, chills, nausea, vomiting. He reported 1 episode of diarrhea this morning. No new medications other than the gabapentin, no drugs, alcohol. No heavy lifting in the gym or otherwise. In the ER his potassium was noted to be 2.5, total creatinine kinase 647, no fever leukocytosis, head CT and chest x-ray negative for acute abnormality. He had an MRI at [facility] in August of 2022 that showed mild lumbar spondylosis at L5-S1. He will be placed on observation for monitoring of mild rhabdomyolysis. 38-year-old man treated for leg weakness and hypokalemia. Patient was noted to have a mildly elevated CPK of 551, peaked at 683. Received a total of 4 L of IV fluids and his Lyrica was stopped. He reported recently starting this for some nerve pain. He reported having an EMG recently and he was supposed to get his results yesterday but was admitted to [facility]. Since admission patient has improved significantly, now able to ambulate without any difficulties. Seen and evaluated by Physical therapy with recommendation for no further acute physical therapy indicated. No infectious source noted. No fever or leukocytosis. Denied drugs, heavy activity including lifting weights or other heavy objects. Patient denied any recent illness, recent travel, sick contacts. 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 No medications that he was on appeared to lower potassium. Treated with IV and oral potassium and resolved. The recommendation would be to eat bananas daily to keep potassium within normal range. Time Attestation Discharge coordination time: Greater than 30 minutes Quality: Safe Use of Opioids Does Pt have an Active Cancer Diagnosis on the Problem List?: No Quality: Stroke Does the patient have a stroke diagnosis?: No Physical Exam Vital Signs: Vital Signs: Last Vital Signs Temp 97.6 F 10/29/23 11:24 Pulse 59 10/29/23 11:24 Resp 18 10/29/23 11:24 BP 133/82 10/29/23 11:24 Pulse Ox 97 10/29/23 11:24 O2 Del Method Room Air 10/29/23 11:24 BMI result Body Mass Index 31.2 Appearing in no acute distress head is normocephalic atraumatic eyes pupils are PERRLA sclera is anicteric mouth throat mucous membranes are intact and moist neck is supple no lymphadenopathy, no JVD noted lung sounds are clear to auscultation heart regular rate rhythm, clear S1, S2 positive bowel sounds, abdomen is soft, nontender neuro patient is alert x3, no focal deficits DS: Data Data Completed and Pending Labs on day of discharge: Laboratory Results - last 24 hr 10/28/23 10/28/23 10/28/23 14:40 15:23 15:44 ESR 5 Sodium 143 Potassium 4.3 D Chloride 114 H Carbon Dioxide 25 Anion Gap 8 L BUN 11 Creatinine 0.69 Estim Creat Clear Calc 165.5 Estimated GFR > 60 Random Glucose 95 Calcium 7.6 L D Total Creatine Kinase 551 H C-Reactive Protein 1.07 H C-React Prot High Sens Cancelled Urine Color Yellow Urine Appearance Clear Urine pH 6.5 Ur Specific Dunlap 1.025 Urine Protein Trace Urine Glucose (UA) Negative Urine Ketones Negative Urine Blood Negative Urine Nitrite Negative Ur Leukocyte Esterase Negative Urine Opiates Screen Not Detected Urine Fentanyl Screen Not Detected Ur Barbiturates Screen Not Detected Ur Phencyclidine Scrn Not Detected Ur Amphetamines Screen Not Detected U Benzodiazepines Scrn Not Detected Urine Cocaine Screen Not Detected U Marijuana (THC) Screen POSITIVE H 10/29/23 10/29/23 05:19 07:53 ESR Sodium 143 Potassium 4.0 Chloride 111 H Carbon Dioxide 25 Anion Gap 11 L BUN 8 L Creatinine 0.77 Estim Creat Clear Calc 151.4 Estimated GFR > 60 Random Glucose 113 Calcium 8.6 D Total Creatine Kinase 614 H 683 H C-Reactive Protein C-React Prot High Sens Urine Color Urine Appearance Urine pH Ur Specific Dunlap Urine Protein Urine Glucose (UA) Urine Ketones Urine Blood Urine Nitrite Ur Leukocyte Esterase Urine Opiates Screen Urine Fentanyl Screen Ur Barbiturates Screen Ur Phencyclidine Scrn Ur Amphetamines Screen U Benzodiazepines Scrn Urine Cocaine Screen U Marijuana (THC) Screen Discharge Plan Discharge Anticipated Discharge Date/Time: 10/30/23 07:06 Patient Disposition: Home, Self-Care Discharge Diagnosis: Hyperkalemic periodic paralysis Elevated CPK Leg weakness Hypokalemia Referrals: Belia Russell MD [Primary Care Provider] - 1 Week Discharge Medications: New pregabalin 75 mg capsule 75 mg PO DAILY Qty: 30 0RF Continued omeprazole 40 mg capsule,delayed release(DR/EC) 40 mg PO DAILY PRN (Reason: Heartburn) dextroamphetamine-amphetamine 25 mg capsule,extended release 24hr 2 cap PO QAM buprenorphine-naloxone 8-2 mg film 1 film sublingual DAILY Discontinued pregabalin 75 mg capsule 75 mg PO BID Discharge Orders: Discharge Order (Routine); Ordered 10/30/23 Ordered By: Allison Gaytan Diet: Advance to usual diet Activity on Discharge: As tolerated Stand Alone Forms: Patient Portal Discharge page Care Plan Goals: Eat bananas daily to keep potassium at a normal range Health Concerns: Hyperkalemic periodic paralysis Elevated CPK Leg weakness Hypokalemia Plan of Treatment: Follow-up with primary care provider as needed Take all medications as prescribed Assessment: See discharge summary
--- NOTE | 2023-10-29 15:13 | MHC.CM.PN ---
Patient is planned for discharge today pending Neuro consult.
[2023-10-29] MEDS: Enoxaparin Sodium 40 MG/0.4 ML SYRINGE SUBCUT (15:55)
[2023-10-29] MEDS: 0.9 % Sodium Chloride Flush 3 ML SYRINGE IVFLUSH ×2 (15:56→23:39)
--- NOTE | 2023-10-29 16:44 | P.CNNE_ITS ---
History of Present Illness Data of Consult Service Date: 10/29/23 Primary Care Provider: Belia Russell MD [facility] Reason for consult: Generalized weakness This is a 38-year-old man who presented to the ER with bilateral thigh weakness and upper body weakness that started 10/27/23 and he reports that he was unable to get up and walk. He tried to get up he slid down to the floor. He fell thrice and needed help to get up and move his legs and did not hav eenough upper body strength. He had a similar episode 5 months back and suddenly lost hi slegs and fell on some steps. He recovered same day so he did not seek medical care. He has a history of left lateral thigh numbness and pain and had a recent EMG at [facility]. He was on gabapentin and reports that it is somewhat helped this was started within the last month. He denies recent travel, sick contacts, recent illness, fever, chills, nausea, vomiting. He reported 1 episode of diarrhea this morning. No new medications other than the gabapentin, no drugs, alcohol. No heavy lifting in the gym or otherwise. In the ER his potassium was noted to be 2.5, total creatinine kinase 647, no fever leukocytosis, head CT and chest x-ray negative for acute abnormality. He had an MRI at [facility] in August of 2022 that showed mild lumbar spondylosis at L5-S1 Review of Systems 2 Review of Systems: Denies any recent fever chills or decrease in appetite respiratory denies any shortness of breath or cough cardiovascular denies chest pain gastrointestinal denies any dysphagia abdominal pain nausea vomiting or diarrhea genitourinary denies any dysuria frequency or hematuria musculoskeletal denies any joint pain or swelling neuropsych denies any weakness or seizures all other systems reviewed are negative Constitutional: Constitutional: Reports no additional constitutional complaints, Denies chills, Denies fever(s), Denies night sweats and Reports weakness Eyes: Eyes: Reports no additional eye complaints, Denies blurry vision, Denies change in vision, Denies diplopia, Denies eye discharge, Denies loss of vision and Denies eye pain ENT: Denies dizziness Cardiovascular: Cardiovascular: Reports no additional cardiovascular complaints, Denies chest pain, Denies lightheadedness, Denies Loss of Consciousness and Denies dyspnea Respiratory: Respiratory: Reports no additional respiratory complaints and Denies dyspnea Gastrointestinal: Gastrointestinal: Reports no additional gastrointestinal complaints, Denies abdominal pain, Denies melena, Denies hematochezia, Denies change in bowel habits and Denies change in stool character Genitourinary: Genitourinary: Reports no additional male genitourinary complaints, Denies hematuria, Denies oliguria, Denies difficulty urinating, Denies dysuria, Denies urinary frequency, Denies urinary hesitancy, Denies urinary incontinence and Denies urinary urgency Musculoskeletal: Musculoskeletal: Reports no additional musculoskeletal complaints, Denies numbness and Denies tingling Neurologic: Denies dizziness, Denies loss of vision, Denies numbness, Denies tingling and Reports weakness Psychiatric: Psychiatric: Reports no additional psychiatric complaints Endocrine: Endocrine: Reports no additional endocrine complaints Hematologic/Lymphatic: Hematologic/Lymphatic: Reports no additional hematologic/lymphatic complaints Allergic/Immunologic: Allergic/Immunologic: Reports no additional allergic/immunologic complaints PMFSH Past Medical History Medical History (Updated 10/28/23 @ 15:37 by Allison Gaytan NP) Culp's palsy History of opioid abuse GERD (gastroesophageal reflux disease) ADHD Family History Pertinent family history: Denies cardiac disease Social History Social History Patient Tobacco Use Status: Former Tobacco user Smoked in Last 30 Days: No Second Hand Smoke Exposure: No Use of substances other than those prescribed or required for medical reasons: No Currently Displaying Signs/Symptoms of Drug Intoxication Withdrawal: No Advance Directives: No Nutrition Risks: No Nutritional Risk service: No Meds Allergies Allergy/AdvReac Type Severity Reaction Status Date / Time amoxicillin AdvReac Gastrointestinal Verified 10/28/23 08:04 Upset Active Medications: Current Medications Buprenorphine/Naloxone (Buprenorphine/Naloxone 8/2 Mg Film) 1 film SUBLINGUAL DAILY MARI Last Admin: 10/29/23 08:08 Dose: 1 film Enoxaparin Sodium (Enoxaparin Sodium 40 Mg/0.4 Ml Syringe) 40 mg SUBCUT Q24H MARI Last Admin: 10/29/23 15:55 Dose: 40 mg Ondansetron HCl (Ondansetron Hcl 4 Mg/2 Ml Vial) 4 mg IVPUSH Q8H PRN PRN Reason: Nausea and Vomiting Last Admin: 10/29/23 12:15 Dose: 4 mg Sodium Chloride (0.9 % Sodium Chloride Flush 3 Ml Syringe) 3 ml IVFLUSH QSHIFT MARI Last Admin: 10/29/23 15:56 Dose: 3 ml Home Medications Medication Instructions Recorded Confirmed Last Taken Type buprenorphine 8 mg-naloxone 2 mg 1 film sublingual DAILY 10/28/23 10/28/23 10/28/23 History sublingual film dextroamphetamine-amphetamine ER 2 cap PO QAM 10/28/23 Unknown History 25 mg 24hr capsule,extend release omeprazole 40 mg capsule,delayed 40 mg PO DAILY PRN Heartburn 10/28/23 10/28/23 Unknown History release Physical Exam 2 Vital Signs: Vital Signs: Last Vital Signs Temp 97.6 F 10/29/23 15:33 Pulse 61 10/29/23 15:33 Resp 18 10/29/23 15:33 BP 142/68 H 10/29/23 15:33 Pulse Ox 97 10/29/23 15:33 O2 Del Method Room Air 10/29/23 15:33 BMI result Body Mass Index 31.2 Const: General: cooperative, no acute distress, alert and awake Nutritional Appearance: well nourished Orientation/consciousness: patient oriented x3 Limitations: no limitations HEENT: Head: Yes normal to inspection and Yes atraumatic Ears: hearing grossly normal bilaterally and external ears normal General nose exam: Normal external nose present, no nasal discharge noted and no epistaxis Face and sinus: Yes normal facial exam, No abrasion and No laceration Mouth: Normal oral and palatal mucosa present, no drooling and no muffled voice Eyes: General: appearance normal, both eyes and all related structures P eriorbital: periorbital findings normal Eyelids: Yes eyelids normal C onjunctivae: conjunctivae normal Pupils: Equal, round and reactive pupils present EOM: EOMs intact bilaterally Neck: Neck: Yes normal visual inspection, Yes full ROM and Yes no lymphadenopathy Chest: Chest palpation & inspection: normal inspection of the chest Resp: Effort & Inspection: normal respiratory effort and able to speak in complete sentences GI: Inspection: Yes normal to inspection Neuro: Other: Speech and language functions are normal. Cranial nerves II through XII are normal. Neck Flexors and extensors are normal. Muscle tone and strength are normal in Upper extremities and distally in the lower extremities including quadriceps and hamstrings. He still has weakness in the iliopsoas, hip flexors. There is no muscle tenderness. Deep tendon reflex are 2+ plantar response are flexor. Sensory exam is normal. General: patient oriented x3 and moves all extremities Cranial nerves: Y es Equal, round and reactive pupils present Cognition (Neuro): normal cognition Motor exam (neuro): 5/5 motor strength present throughout S ensory Exam: Normal double simultaneous stimulation for sensation C oordination: [id number] test normal Extrem: General: Yes normal to inspection, Yes full ROM and Yes capillary refill normal Psych: Appearance: grossly normal Mental Status: mental status grossly normal Affect: normal affect Attitude: cooperative Thought process: N ormal thought process present Thought content: Normal thought content present Insight: Good insight present (Psych) Results Labs 10/28/23 10:59 10/29/23 07:53 Labs: BMP 10/29/23 07:53 Sodium 143 Potassium 4.0 Chloride 111 H Carbon Dioxide 25 BUN 8 L Creatinine 0.77 Calcium 8.6 D Cardiac Enzymes 10/29/23 10/29/23 Range/Units 05:19 07:53 Total Creatine Kinase 614 H 683 H (38-174) U/L Assessment and Plan (1) Weakness: Status: Acute 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 Is initial potassium was 2.5 and is now in the normal range. Muscle strength is almost back to normal. I suspect his elevated CPKs is from the multiple falls. He had before admission, rather than a myopathic process. Recommendations: Recheck CPK. Expect CPK values to return to normal within the week. Check TSH, T3, T4. Sedimentation rate. He can be discharged tomorrow. He should eat a banana every day to keep hiis potassium levels up. Outpatient followup in 2-3 weeks (2) Elevated CK: Status: Acute Plan 38-year-old man presented to the ER with complaints of weakness and difficulty with ambulation. Recent EMG at [facility], unknown diagnosis, started on gabapentin in September of 2023 for nerve pain. Denies recent vigorous exercise or lifting. Lower extremity weakness with mild elevation in CPK History of nerve pain to left lower extremity with recent EMG at [facility] Was started on gabapentin for nerve pain, this could also be causing some mild rhabdomyolysis symptoms although CPK is 647 Completed 3 L of IV fluids and stated he was able to move a little bit better Will continue IV fluids Neurology consultation Check CPK and ESR Hold gabapentin Hypokalemia. Resolved Unknown etiology Patient denied vigorous exercise, vomiting or diarrhea No new medications other than the gabapentin Replaced with oral and IV supplementation History of opioid abuse On Suboxone DVT prophylaxis with Lovenox Full code Observation Procedures Date of Service Date of Service: 10/29/23
--- NOTE | 2023-10-29 17:07 | HO.PM.IMPN ---
Subjective Subjective Date of Service: 10/29/23 Review of Systems Follow up weakness moving better today no pain Physical Exam Vital Signs: Vital Signs: Last Vital Signs Temp 97.6 F 10/29/23 15:33 Pulse 61 10/29/23 15:33 Resp 18 10/29/23 15:33 BP 142/68 H 10/29/23 15:33 Pulse Ox 97 10/29/23 15:33 O2 Del Method Room Air 10/29/23 15:33 BMI result Body Mass Index 31.2 Appearing in no acute distress head is normocephalic atraumatic eyes pupils are PERRLA sclera is anicteric mouth throat mucous membranes are intact and moist neck is supple no lymphadenopathy, no JVD noted lung sounds are clear to auscultation heart regular rate rhythm, clear S1, S2 positive bowel sounds, abdomen is soft, nontender neuro patient is alert x3, no focal deficits, WILKERSON Objective Data Active Medications Buprenorphine/Naloxone (Buprenorphine/Naloxone 8/2 Mg Film) 1 film SUBLINGUAL DAILY [facility] Last Admin: 10/29/23 08:08 Dose: 1 film Documented By: JIM Enoxaparin Sodium (Enoxaparin Sodium 40 Mg/0.4 Ml Syringe) 40 mg SUBCUT Q24H [facility] Last Admin: 10/29/23 15:55 Dose: 40 mg Documented By: JIM Ondansetron HCl (Ondansetron Hcl 4 Mg/2 Ml Vial) 4 mg IVPUSH Q8H PRN PRN Reason: Nausea and Vomiting Last Admin: 10/29/23 12:15 Dose: 4 mg Documented By: JIM Sodium Chloride (0.9 % Sodium Chloride Flush 3 Ml Syringe) 3 ml IVFLUSH QSHIFT [facility] Last Admin: 10/29/23 15:56 Dose: 3 ml Documented By: JIM Labs 10/28/23 10:59 10/29/23 07:53 Labs: Laboratory Results - last 24 hr 10/29/23 10/29/23 05:19 07:53 Anion Gap 11 L Estim Creat Clear Calc 151.4 Estimated GFR > 60 Random Glucose 113 Calcium 8.6 D Total Creatine Kinase 614 H 683 H Assessment and Plan (1) Weakness: Status: Acute Plan 38-year-old man presented to the ER with complaints of weakness and difficulty with ambulation. Recent EMG at [facility], unknown diagnosis, started on gabapentin in September of 2023 for nerve pain. Denies recent vigorous exercise or lifting. Lower extremity weakness with mild elevation in CPK, possibly hypokalemic periodic paralysis History of nerve pain to left lower extremity with recent EMG at [facility] Was started on lyrica for nerve pain, this could also be causing some mild rhabdomyolysis symptoms although CPK is 647 Completed 3 L of IV fluids and stated he was able to move a little bit better, upper body weakness completely resolved Neurology consultation> possibly HPP, check CPK in am, tsh profile, potassium Hold Lyrica for now Hypokalemia. Resolved Unknown etiology QTC 421 Patient denied vigorous exercise, vomiting or diarrhea No new medications other than the Lyrica Replaced with oral and IV supplementation History of opioid abuse On Suboxone DVT prophylaxis with Lovenox Attending Dr. Kelley Full code Observation Quality Stroke Does the patient have a stroke diagnosis?: No VTE Prior VTE?: No VTE Risk Level:: Medical - moderate - high VTE Device Contraindication: Treatment Not Indicated VTE Drug Contraindication: N/A - Med Ordered
[2023-10-29 19:19] LABS: TSH reflex Free T4 2.19 uIU/mL (0.32-4.0)
[2023-10-29 23:49] LABS: A. Phagocytphilium DNA,RT-PCR NOT DETECTED (NOT DETECTED); Babesia Microti DNA, RT-PCR NOT DETECTED (NOT DETECTED); Borrelia Miyamotoi,DNA RT-PCR NOT DETECTED (NOT DETECTED); E.Chaffeensis DNA RT-PCR NOT DETECTED (NOT DETECTED); Lyme(Borrelia ssp)DNA RT-PCR NOT DETECTED (NOT DETECTED)
[2023-10-30 06:24] LABS: Anion Gap 10 (12-20); Blood Urea Nitrogen 8 mg/dL (9-16); Calcium 8.9 mg/dL (8.4-10.2); Carbon Dioxide 29 mmol/L (22-29); Chloride 107 mmol/L (96-108); Creatinine Clr Calc Pharmacy 137.2; Estimated Glomerular Filt Rate > 60; Glucose Random 103 mg/dL (60-115); Potassium 4.2 mmol/L (3.3-5.1); Sodium 142 mmol/L (135-145)
[2023-10-30 07:28] VITALS: BP 124/67; PULSE 57; RESP 16; TEMP 36.2; O2SAT 99
[2023-10-30] MEDS: Buprenorphine/Naloxone 8/2 mg FILM 1 FILM SUBLINGUAL (08:46)
[2023-10-30] MEDS: 0.9 % Sodium Chloride Flush 3 ML SYRINGE IVFLUSH (08:47)
--- NOTE | 2023-10-30 08:47 | MHC.CM.PN ---
ALEXANDER 10/29/23 Patient is discharged to home home today self care. [facility] has contacted patient re Adult foster program. Susie is scheduled to follow up after discharge. Patients fouzia will provide transportation home.
[2023-10-31 08:24] LABS: Triiodothyronine T3 Free 3.5 pg/mL (2.3-4.2)
== END 2023-10-30 09:36 | disposition home or self-care (01) ==
LOC: HO.ED 15:02 → HO.EDOVER 15:25 → HO.S3 10-29 00:02
PROVIDERS: Physician Assistant Medical; Admitting Provider Nurse Practitioner Acute Care; Emergency Provider Emergency Medicine; PCP Internal Medicine; Visit Provider Nurse Practitioner Acute Care
DX: G72.3 Periodic paralysis (principal); R74.8 Abnormal levels of other serum enzymes; R53.1 Weakness; M79.605 Pain in left leg; K21.9 Gastro-esophageal reflux disease without esophagitis; F11.11 Opioid abuse, in remission; Z79.899 Other long term (current) drug therapy; Z11.52 Encounter for screening for COVID-19
CPT/HCPCS: 36415; 70450; 71046; 80048; 80053; 80307; 81003; 82550; 83735; 84443; 84481; 85025; 85652; 86140; 86141; 86308; 87468; 87469; 87478; 87484; 87502; 87635; 87798; 93005; 96361; 96365; 96372; 96375; 97161; 99221; 99285; J1650; J2405; J3480

== ENCOUNTER → 2023-10-28 09:22 | Outpatient (BNV) | payer OTHER, SELFPAY | PROVIDERS: Emergency Provider Emergency Medicine; PCP Internal Medicine; Visit Provider Internal Medicine | DX: R00.1 Bradycardia, unspecified (principal) | CPT/HCPCS: 93010 ==

== ENCOUNTER → 2023-10-28 15:16 | Outpatient (BNV) | payer OTHER, SELFPAY | PROVIDERS: Admitting Provider Nurse Practitioner Acute Care; Emergency Provider Emergency Medicine; PCP Internal Medicine; Visit Provider Psychiatry & Neurology Neurology | DX: R53.1 Weakness (principal); R74.8 Abnormal levels of other serum enzymes | CPT/HCPCS: 99222 ==

== ENCOUNTER → 2023-10-28 15:16 | Outpatient (BNV) | payer OTHER, SELFPAY | PROVIDERS: Admitting Provider Nurse Practitioner Acute Care; Emergency Provider Emergency Medicine; PCP Internal Medicine; Visit Provider Nurse Practitioner Acute Care | DX: R53.1 Weakness (principal); R74.8 Abnormal levels of other serum enzymes | CPT/HCPCS: 99222; 99232; 99239 ==

== ENCOUNTER 2024-06-25 11:33 | Emergency (ER) | payer OTHER, SELFPAY ==
--- NOTE | ~2024-06-25 | XR_ITS ---
EXAMINATION: XR HAND/WRIST, LEFT CLINICAL INFORMATION: Trauma deformity COMPARISON: None available. TECHNIQUE: Two views of the left hand and wrist. FINDINGS: Transversely impacted fracture of the distal radius with apex volar angulation and approximately 1.3 cm of overriding . Joint space alignment otherwise maintained. Soft tissue swelling overlying fracture site. XR/XR hand wrist LT IMPRESSION: 1. Transversely impacted fracture of the distal radius with apex volar angulation and approximately 1.3 cm of overriding. 2. Soft tissue swelling overlying fracture site. Electronically signed by: Chris Mulligan MD 06/25/2024 01:43 PM EDT
--- NOTE | ~2024-06-25 | XR_ITS ---
EXAMINATION: XR HAND/WRIST, LEFT CLINICAL INFORMATION: Postreduction COMPARISON: None available. TECHNIQUE: Two views of the left hand and wrist. FINDINGS: Overlying cast obscures fine osseous and soft tissue detail. Persistence impaction of transversely oriented distal radius fracture with stable overlap 0.3 cm along the dorsal aspect distal radius. Ulnar styloid fracture fragment better visualized on current examination. Soft tissue swelling overlying fracture site. XR/XR hand wrist LT IMPRESSION: 1. Persistence impaction of transversely oriented distal radius fracture with stable overlap 0.3 cm along the dorsal aspect distal radius. 2. Ulnar styloid fracture fragment better visualized on current examination. 3. Soft tissue swelling overlying fracture site. Electronically signed by: Chris Mulligan MD 06/25/2024 04:18 PM EDT
[2024-06-25 11:41] VITALS: BP 152/88; BP 156/79; PULSE 59; PULSE 60; RESP 18; TEMP 36.7; O2SAT 100; O2SAT 99; BMI 28.7
--- NOTE | 2024-06-25 11:44 | ED.EXTPRO ---
HPI - Extremity Problem General Chief complaint: Extremity Injury, Upper Stated complaint: FALL @ WORK,L WRIST PAIN/DEFORMED PER EMS Time Seen by Provider: 06/25/24 11:41 Source: patient and EMS Mode of arrival: EMS Limitations: no limitations History of Present Illness ED Provider: JOSE ALCALA PA-C HPI Narrative: 38 year old right hand dominant male with pmhx significant for opioid use disorder on Suboxone, GERD, ADHD presents to the ED today via EMS for evaluation of left wrist pain s/p [employer] in ED. Patient reports that while stepping down the stairs at work, he slipped causing him to fall backwards. Reports putting his left arm/ hand out to cushion his fall and heard a crack from his wrist. Admits to immediate pain with noted wrist deformity. Denies head strike or LOC. Not on AC. Denies numbness/tingling/weakness of the LUE. Tetanus is UTD. Related Data Home Medications ?Medication ?Instructions ?Recorded ?Confirmed buprenorphine 8 mg-naloxone 2 mg 1 film sublingual DAILY 10/28/23 10/28/23 sublingual film dextroamphetamine-amphetamine ER 2 cap PO QAM 10/28/23 25 mg 24hr capsule,extend release omeprazole 40 mg capsule,delayed 40 mg PO DAILY PRN Heartburn 10/28/23 10/28/23 release Previous Rx's ?Medication ?Instructions ?Recorded pregabalin 75 mg capsule 75 mg PO DAILY #30 caps 10/30/23 morphine 15 mg immediate release 15 mg PO Q8H PRN pain (scale score 06/25/24 tablet 4-6) #7 tabs Allergies Allergy/AdvReac Type Severity Reaction Status Date / Time amoxicillin AdvReac Gastrointestinal Verified 06/26/24 09:18 Upset Review of Systems Review of Systems: Constitutional: No fever, chills, fatigue, night sweats, weight changes ENT/Mouth: No ear pain, hearing loss, nasal congestion, sinus pain, rhinorrhea, sore throat Eyes: No eye pain, swelling, redness, vision changes, discharge Cardio: No chest pain, palpitations, CAIN, orthopnea, peripheral edema Pulm: No SOB, cough, sputum, wheezing, dyspnea, hemoptysis GI: No nausea, vomiting, hematemesis, abdominal pain, diarrhea, constipation, hematochezia, melena : No irregular bleeding, dysuria, frequency, urgency, hesitancy, hematuria, flank pain, urinary flow changes, urinary incontinence or retention MSK: No back pain, neck pain, joint pain, myalgias, +left wrist pain/ deformity Skin: No lesions, rashes Neuro: No weakness, numbness, paresthesias, LOC, dizziness, headache Psych: No anxiety/panic, depression, SI/HI, AH/VH All other systems reviewed and are negative. [facility] Past Medical History Attestation statement: The following information was validated with the patient. Source: old records reviewed and nursing notes reviewed Medical History Culp's palsy History of opioid abuse GERD (gastroesophageal reflux disease) ADHD Social History Social History Patient Tobacco Use Status: Former Tobacco user Second Hand Smoke Exposure: No service: No Physical Exam Vital Signs: Vital Signs: Last Vital Signs Temp 98.5 F 06/25/24 16:39 Pulse 73 06/25/24 16:39 Resp 16 06/25/24 16:39 BP 136/81 06/25/24 16:39 Pulse Ox 98 06/25/24 16:39 O2 Del Method Room Air 06/25/24 16:39 BMI result Body Mass Index 28.7 Patient hypertensive to 147/90, vitals otherwise wnl General: Well appearing, in no acute distress. Skin: Warm, dry, intact. No rashes or lesions. Head: Normocephalic, atraumatic. EENT: Hearing is intact b/l. Conjunctiva clear. Sclera is anicteric. PERRLA. EOM intact. Moist mucous membranes.? Neck: Supple without LAD. FROM. Trachea midline.? Cardiac: Chest wall symmetric. RRR. No MRG. No JVD. Lungs: Normal respiratory effort without accessory muscle use. CTA bilaterally. No rales, rhonchi, or wheezes.? Abdomen: Soft, non-tender, non-distended. No rebound tenderness or guarding. Positive BS x4. Back: No midline spinous or paraspinal tenderness. No step off deformity. Ext: +LUE with noted dinner fork deformity to left wrist. Limited ROM to wrist. ROM intact to all digits on left hand. 2+ radial and ulnar pulse intact. Neuro: AOx3. Normal speech. Sensation intact to light touch. NV intact distally. Ambulating with steady gait. Psych: Appropriate mood and affect. Responds appropriately to questions. Course Course Course Narrative: 5389 -- x-ray left hand/wrist showing transversely impacted fracture of the distal radius with apex volar angulation and a proximally 1.3 cm of overriding. There is soft tissue swelling overriding fracture site. These findings were discussed with orthopedic CRISTAL Williamson who recommends reduction with postreduction films. > Informed patient who is agreeable. Medicated with both IM toradol and morphine IV. Will perform hematoma block for reduction. 1513 -- left wrist fracture reduction performed with Dr. Webber. Sugar tong splint placed. Patietn NV intact distally following splint placement. Reports splint is comfortable however does report tingling to his fingers. Post-reduction films ordered. Will reach out to ortho with update. 1611 -- On re-evaluation of patient, he states that he no longer has numbness/ tingling in his left digits. able to move all digits. I spoke with ortho CRISTAL Williamson who has made a follow up appointment for patient tomorrow morning. Patient has remained stable throughout ED visit today. Discussed worrisome signs and symptoms and when to return to the ED. All questions answered at this time. Patient is agreeable with disposition and stable for discharge. Medications Administered Discontinued Medications Generic Name Dose Route Start Last Admin Trade Name Freq PRN Reason Stop Dose Admin Hydromorphone HCl 1 mg 06/25/24 14:35 06/25/24 14:40 Hydromorphone Hcl 1 Mg/Ml Syringe IVPUSH 06/25/24 14:36 1 mg ONCE ONE Administration Protocol Ketorolac Tromethamine 30 mg 06/25/24 11:51 06/25/24 12:17 Ketorolac Tromethamine 30 Mg/Ml Vial IM 06/25/24 11:52 30 mg ONCE ONE Administration Lidocaine HCl 10 ml 06/25/24 13:58 06/25/24 14:45 Lidocaine Hcl 1 % Mpf 5 Ml Vial INFILTRATI 06/25/24 13:59 10 ml ONCE ONE Administration Morphine Sulfate 4 mg 06/25/24 13:33 06/25/24 13:43 Morphine Sulfate 4 Mg/Ml Cartridge IVPUSH 06/25/24 13:34 4 mg ONCE ONE Administration Protocol Medical Decision Making Medical Decision Making MDM Narrative: 38 year old right hand dominant male with pmhx significant for opioid use disorder on Suboxone, GERD, ADHD presents to the ED today via EMS for evaluation of left wrist pain s/p [employer] in ED. patient hypertensive to 147/90, likely secondary to pain, vitals otherwise WNL. On exam, LUE with noted dinner fork deformity to left wrist. Limited ROM to wrist. ROM intact to all digits on left hand. 2+ radial and ulnar pulse intact. sensation intact. nv intact distally. Differential diagnosis includes fracture, dislocation, contusion. Unlikely NV compromise, compartment syndrome, threat to limb. Plan for pain control, xrs, and re-evaluation. Differential Diagnosis Differential Diagnoses: The differential diagnosis associated with the presentation includes As above Admission/Observation Not indicated Independent Interpretation I performed an independent interpretation of an: Plain X-Ray Interpretation: XR left hand/ wrist showing noted fracture to distal radius, agree with radiologist's interpretation. Radiology Impression Discussion of test interpretation with radiology: I have reviewed the radiologist's reading. Radiologist Impression: EXAMINATION: XR HAND/WRIST, LEFT CLINICAL INFORMATION: Trauma deformity COMPARISON: None available. TECHNIQUE: Two views of the left hand and wrist. FINDINGS: Transversely impacted fracture of the distal radius with apex volar angulation and approximately 1.3 cm of overriding . Joint space alignment otherwise maintained. Soft tissue swelling overlying fracture site. XR/XR hand wrist LT IMPRESSION: 1. Transversely impacted fracture of the distal radius with apex volar angulation and approximately 1.3 cm of overriding. 2. Soft tissue swelling overlying fracture site. Electronically signed by: Chris Mulligan MD 06/25/2024 01:43 PM EDT Prescription Management I considered prescription management with: Pain Medication (morphine, tylenol, motrin) Chronic Conditions Patient?s care impacted by: Other (opioid use disorder) Social Determinants Patient?s care significantly limited by Social Determinants of Health including: Other Social Determinant of Health Procedures Orthopedic Fracture Reduction Fracture #1: Time Out Performed: Yes Side: left Fracture Reduction Location: radius Analgesia: hematoma block Technique: direct manipulation and traction/counter-traction Post Reduction X-rays Demonstrate: acceptable reduction Post-reduction neuro exam: intact Post-reduction vascular exam: intact Splint Applied: Yes Patient Tolerated Procedure: well Orthopedic Splinting/Casting Injury #1: Side: left Upper Extremity Injury Location: wrist Upper Extremity Immobilizer: sling/shoulder immobilizer and sugar tong splint Critical Care Time Critical Care Time Critical Care Time: No Discharge Plan Discharge Clinical Impression: Fracture of distal end of left radius Patient Disposition: Home, Self-Care Instructions: Wrist Fracture in Adults (ED) Additional Instructions: You have been evaluated in the Emergency Department today for wrist injury. Your evaluation showed a fracture of your left wrist. I have placed your wrist in a splint today. Avoid getting the splint wet. We have provided you with a sling to help hold your arm in place. Please rest, ice, and elevate your wrist. I recommend you take 600mg ibuprofen every 6 hours or tylenol 650mg every 6 hours as needed for pain. If needed, you can alternate these medications so that you take one medication every 3 hours. For example, at noon take ibuprofen, then at 3pm take tylenol, then at 6pm take ibuprofen.? Please take morphine as directed as necessary for breakthrough pain. Please follow-up with an orthopedic surgeon tomorrow. You have been provided with a referral. Call them today to make an appointment, they will not call you. Return to the Emergency Department if you experience worsening pain, numbness, tingling, change of color in your toes, or any other concerning symptoms. Prescriptions: New morphine 15 mg tablet 15 mg PO Q8H PRN (Reason: pain (scale score 4-6)) Qty: 7 0RF Rx Instructions: Partial Fill upon patient request. No Action omeprazole 40 mg capsule,delayed release(DR/EC) 40 mg PO DAILY PRN (Reason: Heartburn) dextroamphetamine-amphetamine 25 mg capsule,extended release 24hr 2 cap PO QAM buprenorphine-naloxone 8-2 mg film 1 film sublingual DAILY pregabalin 75 mg capsule 75 mg PO DAILY Qty: 30 0RF Referrals: [facility] [Provider Group] - 1 week (XR hand wrist LT IMPRESSION: 1. Transversely impacted fracture of the distal radius with apex volar angulation and approximately 1.3 cm of overriding. 2. Soft tissue swelling overlying fracture site.) Interventions: ED Discharge Assessment Last Done: 06/25/24 16:39 Discharge Date/Time: 06/25/24 16:39 Print Language: Prydeinig
[2024-06-25] MEDS: Ketorolac Tromethamine 30 MG/ML VIAL IM (12:17)
[2024-06-25 12:20] VITALS: BP 147/90; PULSE 62; RESP 16; O2SAT 99
[2024-06-25] MEDS: Morphine Sulfate 4 MG/ML CARTRIDGE IVPUSH (13:43)
[2024-06-25] MEDS: HYDROmorphone HCl 1 MG/ML SYRINGE IVPUSH (14:40)
[2024-06-25] MEDS: Lidocaine HCl 1 % MPF 5 ML VIAL 10 ML INFILTRATI (14:45)
[2024-06-25 15:29] VITALS: BP 136/81; PULSE 73; RESP 16; TEMP 36.9; O2SAT 98
[2024-06-25 16:39] VITALS: BP 136/81; PULSE 73; RESP 16; TEMP 36.9; O2SAT 98
== END 2024-06-25 16:39 | disposition home or self-care (01) ==
PROVIDERS: Emergency Provider Emergency Medicine
DX: S52.502A Unspecified fracture of the lower end of left radius, initial encounter for closed fracture (principal); M25.532 Pain in left wrist; W10.8XXA Fall (on) (from) other stairs and steps, initial encounter; Y93.89 Activity, other specified; Y92.89 Other specified places as the place of occurrence of the external cause; Y99.0 Civilian activity done for income or pay
CPT/HCPCS: 29125; 73110; 73130; 96372; 96374; 96375; 99284; J1170; J1885; J2270

== ENCOUNTER 2024-06-26 08:12 | Outpatient (REF) | payer OTHER, SELFPAY ==
--- NOTE | ~2024-06-26 | XR_ITS ---
EXAMINATION: XR WRIST, LEFT CLINICAL INFORMATION: Follow-up fracture. COMPARISON: Radiograph left hand/wrist 06/25/2024. TECHNIQUE: Four views of the left wrist. FINDINGS: Overlying casting limits assessment of fine osseous details. Similar appearance of a comminuted distal radial fracture with stable dorsal displacement. Unchanged mildly displaced ulnar styloid fracture. No significant interval changes. XR/XR wrist LT w scaphoid IMPRESSION: Similar appearance of a comminuted distal radial fracture and ulnar styloid fracture. Electronically signed by: Sangeetha Duffy MD 06/26/2024 10:24 AM EDT
== END 2024-06-26 08:13 | disposition home or self-care (01) ==
LOC: HO.HOSX 08:12
DX: M25.532 Pain in left wrist (principal); S52.502D Unspecified fracture of the lower end of left radius, subsequent encounter for closed fracture with routine healing
CPT/HCPCS: 73110; 99202

== ENCOUNTER 2024-06-26 09:19 | Outpatient (AMB) | payer OTHER, SELFPAY ==
--- NOTE | 2024-06-26 09:17 | MHC.OFFVIS ---
Intake Visit Reasons: FC-distal radius fracture, Left Intake Note: Xavi is a 38 year old right hand dominant male who presents today as a new patient for an ED follow up for his left distal radius fracture s/p fall DOI: 06/25/24. Patient reports while stepping down the stairs at work he slipped causing him to fall backwards, he tried to cushion fall with an out stretched left arm however he heard a crack when landing on it. PT states his pain is a 6 on the 1-10 pain scale but if he moves his arm at all the pain is much worse. Pt has been in a sling and splint since being seen at the ED. Accompanied by: Significant Other Allergies amoxicillin Adverse Reaction (Verified 06/26/24 09:18) Gastrointestinal Upset HPI HPI FC-distal radius fracture, Left: Details: Patient is a 38-year-old male who presents for ED follow-up for displaced left distal radius fracture, date of injury 06/25/2024. The patient reports that on that date, he was going down the stairs at work, when he slipped fell and tried to catch himself on his left hand. The patient reports he felt and heard an audible crack when this happened, and began experiencing excruciating pain along with a significant deformity in his left wrist. Patient reports that reduction was attempted in the emergency department, but that this was excruciatingly painful. Today, the patient reports that his pain has improved, but he would still rate at a 6 on the scale of 1-10. Patient denies any numbness or tingling in the left hand. No other acute complaints or concerns this time. [facility] Medical History Culp's palsy History of opioid abuse GERD (gastroesophageal reflux disease) ADHD Social History Patient Tobacco Use Status: Former Tobacco user Second Hand Smoke Exposure: No service: No Review of Systems Const All systems reviewed & are unremarkable except as noted in HPI and below Physical Exam Extrem Other: Patient is in post reduction splint in the office today, and is not removed from the splint at this time. Patient is alert, oriented, and in no acute distress. Neuro: Patient reports normal sensation of the tips of all digits of the left hand at this time Vascular: Cap refill brisk Pain: Patient reports discomfort with range of motion of the fingers ROM: Patient is able to make a closed fist and extend the digits of the left hand fully with encouragement Psych: Appears grossly normal Affect normal Attitude cooperative Results Reviewed Results Reviewed: X-rays obtained in the office today and independently reviewed by me, Clay Amin PA-C, demonstrate displaced fracture of the left distal radius with dorsal angulation. Assessment & Plan Assessment & Plan (1) Closed fracture of left distal radius: Code(s): S52.502A - Unspecified fracture of the lower end of left radius, initial encounter for closed fracture Category: Medical Plan 1. Left distal radius fracture Date of injury 06/25/2024 I educated the patient about the condition. I discussed both operative and nonoperative treatment options. The patient would like to proceed with surgery. The risks and benefits of operative treatment were discussed with the patient and the patient wishes to proceed with surgery. These risks include, but are not limited to, risk of damage to blood vessels, nerves, tendons, infection, recurrence, incomplete relief of preoperative symptoms, persistent pain, possible need for further surgery, and the risks associated with regional blocks and/or anesthesia. Plan is to take the patient to the operating room at some point on 06/29/2024 for the following procedures: 1. Left distal radius open reduction internal fixation All of the preoperative paperwork including the consent was discussed today. All of the patient's questions were answered in the clinic today. The patient understands that they will be in contact with our certified surgical technician to discuss scheduling their procedure. Patient denies diabetes, blood thinners, asthma, heart issues, lung issues, kidney issues, or current smoking. Orders: Orders XR wrist LT w scaphoid Today M25.532 - Pain in left wrist Coding Level of Care Code New Pt Level 4 (56743) Diagnoses Closed fracture of left distal radius S52.502A
== END 2024-06-26 10:01 | disposition home or self-care (01) ==
LOC: HO.HOS 09:19
PROVIDERS: PCP Family Medicine
DX: S52.502A Unspecified fracture of the lower end of left radius, initial encounter for closed fracture (principal); W19.XXXA Unspecified fall, initial encounter; Z04.2 Encounter for examination and observation following work accident
CPT/HCPCS: 99204

== ENCOUNTER 2024-06-29 07:29 | Day surgery (SDC) | payer OTHER, SELFPAY ==
--- NOTE | 2024-06-26 12:50 | P.CONAN_ITS ---
Documented by User: Debbie Gonzalez NP 06/26/24 12:52 HPI - Anesthesia Eval Consult details Narrative: 38yo M for Left Radius Distal Fracture ORIF Suboxone daily PMFSH Past Medical History Medical History Culp's palsy History of opioid abuse GERD (gastroesophageal reflux disease) ADHD Surgical History Surgical History History of dental surgery Social History Social History Are you a primary rn transitional care to a significant other at home: Yes Do you presently have visiting nurse or other home services: No Patient Tobacco Use Status: Former Tobacco user Tobacco use type: Cigarette Years Smoked: 4 Smoked in Last 30 Days: No Second Hand Smoke Exposure: No Use of substances other than those prescribed or required for medical reasons: No Have you been hit, kicked, punched, or otherwise hurt by someone within the past year? If so, by whom?: No Are you DNR?: No Advance Directives: No Advance Directives Information Provided: Yes Recently lost weight without trying: No How much weight loss: Not applicable Eating poorly because of decreased appetite: No Nutrition screen score: 0 Nutrition Risks: No Nutritional Risk Poor oral hygiene: Yes (Missing teeth) service: No Meds Allergies Allergy/AdvReac Type Severity Reaction Status Date / Time amoxicillin AdvReac Severe Gastrointestinal Verified 06/29/24 08:21 Upset Home Medications ?Medication ?Instructions ?Recorded ?Confirmed ?Last Taken ?Type buprenorphine 8 mg-naloxone 2 mg 1 film sublingual DAILY 10/28/23 06/29/24 06/29/24 History sublingual film omeprazole 40 mg capsule,delayed 40 mg PO DAILY PRN Heartburn 10/28/23 06/29/24 Unknown History release Exam Narrative Narrative: EKG 10/2023 Vent. Rate : 059 BPM Atrial Rate : 059 BPM P-R Int : 142 ms QRS Dur : 088 ms QT Int : 426 ms P-R-T Axes : 059 036 007 degrees QTc Int : 421 ms Sinus bradycardia Otherwise normal ECG No previous ECGs available Assessment and Plan Assessment Anesthesia Assessment: Chart Reviewed Documented by User: Roopa Ireland MD 06/29/24 10:20 PMFSH Past Medical History Medical History Culp's palsy History of opioid abuse GERD (gastroesophageal reflux disease) ADHD Family History Family history of problems with anesthesia: No Surgical History Surgical History History of dental surgery History of Problems with Anesthesia: No Social History Social History Are you a primary rn transitional care to a significant other at home: Yes Do you presently have visiting nurse or other home services: No Patient Tobacco Use Status: Former Tobacco user Tobacco use type: Cigarette Years Smoked: 4 Smoked in Last 30 Days: No Second Hand Smoke Exposure: No Use of substances other than those prescribed or required for medical reasons: No Have you been hit, kicked, punched, or otherwise hurt by someone within the past year? If so, by whom?: No Are you DNR?: No Advance Directives: No Advance Directives Information Provided: Yes Recently lost weight without trying: No How much weight loss: Not applicable Eating poorly because of decreased appetite: No Nutrition screen score: 0 Nutrition Risks: No Nutritional Risk Poor oral hygiene: Yes (Missing teeth) service: No Meds Allergies Allergy/AdvReac Type Severity Reaction Status Date / Time amoxicillin AdvReac Severe Gastrointestinal Verified 06/29/24 08:21 Upset Home Medications ?Medication ?Instructions ?Recorded ?Confirmed ?Last Taken ?Type buprenorphine 8 mg-naloxone 2 mg 1 film sublingual DAILY 10/28/23 06/29/24 06/29/24 History sublingual film omeprazole 40 mg capsule,delayed 40 mg PO DAILY PRN Heartburn 10/28/23 06/29/24 Unknown History release Exam Airway Mallampati Class: II TM Dist: >3cm Neck ROM: Full Heart: rrr Lungs: cta Assessment and Plan Assessment Anesthesia Assessment: Anesthesia Plan Discussed Final Anesthetic Review Family History of Problems with Anesthesia: No History of Problems with Anesthesia: No NPO: Yes ASA Class: II Final Preanesthetic Review: No Changes in Pt Med Stat, Meds/Allgs Chart Reviewed, Consent Obtained/Reviewed and Anes Risks/Benef Reviewed Patient Risk: Low Procedure Risk: Intermediate Anesthetic Plan Anesthetic Plan: GA and Regional Block Disposition: Standard PACU
--- NOTE | 2024-06-29 08:13 | MHC.SHP ---
Pre-Procedural Eval Section A - 24 Hr Update-Section A only Date of Service: 06/29/24 The patient is an INPATIENT: No Changes since office visit: No Cold of Flu in the past 2 weeks, No New Medical Problems, No Changes in Medication and No Patient answered all questions The patient has been examined within 24 hours of the surgical procedure. The History & Physical has been completed within 30 days and I have reviewed it.: Yes Section B - Complete if H&P > 30 days Chief Complaint: Unspecified fracture of the lower end of L radius Allergies: Allergies Allergy/AdvReac Type Severity Reaction Status Date / Time amoxicillin AdvReac Gastrointestinal Verified 06/26/24 09:18 Upset Plan I have reviewed the history and physical and performed a pertinent physical examination on my patient. No changes have occurred unless specified. Time Spent With Patient Time: Total time managing care of this patient today ____ minutes.
--- NOTE | 2024-06-29 08:14 | P.OP_ITS ---
Operative Note Operative Note Date of Service: 06/29/24 Narrative: Operative Note Narrative: Preop diagnosis: 1. Left Distal radius fracture, comminuted and intra-articular Postop diagnosis: Same Procedure: 1. Left Distal radius fracture open reduction internal fixation, 3 part intra- articular Surgeon: Edwige Lynch MD Sleeve Bottom Feller: None Anesthesia: General anesthesia plus regional block Findings: Comminuted 3 part intra-articular distal radius fracture with displa cement Implants: A 3 hole Accu Med volar locking plate, with 6 X 2.3 mm locking pegs/screws, and 3 3.5 mm cortical screws Tourniquet time: 72 minutes EBL: 5.0 ml Specimen: None Drains: None Complications: None Disposition: Brought to the recovery room in stable condition Plan: Follow-up in 10-14 days for wound check, suture removal and postop radiographs The patient will be placed in either a short-arm cast Encouraged no lifting of anything heavier than a cell phone. Please encourage active and passive range of motion of the digits. Follow-up at 4-5 weeks postop for repeat radiographs. Indications: The patient is a 38 year old man with left 3 part intra-articular distal radius fracture with displacement . The risks and benefits of operative treatment, including but not limited to risk of damage to blood vessels, nerves, tendons, infection, recurrence, persistent pain or numbness, incomplete resolution of preoperative symptoms, or need for further surgery were discussed with the patient and they wished to proceed with surgery. Procedure: Once consent was obtained patient was brought back to the operating suite and placed in the operating table in a supine position. A regional block was performed by the anesthesia team. Perioperative antibiotics and anesthesia was administered by the anesthesia team. A tourniquet was applied to the proximal aspect of the left upper extremity and the limb was prepped and draped in a standard surgical fashion. The limb was elevated exsanguinated with Esmarch bandage and the tourniquet inflated to 250 mm of mercury for a total tourniquet time of 72 minutes. The FluoroScan was used throughout the case to assess our reduction, and facilitate implant placement. A gentle closed reduction was 1st performed on t he patient's left distal radius fracture. Was assessed radiographically before proceeding with the reduction internal fixation. I then made an 8 cm longitudinal incision over the distal aspect of the flexor carpi radialis tendon. The incision was made through the skin to the subcutaneous tissue using a 15. Blade. Then carefully dissected down to flexor carpi radialis tendon she tenotomy scissors. The FCR tendon sheath was then incised longitudinally using tenotomy scissors under direct visualization. The FCR tendon was then retracted ulnarly. I then made a longitudinal incision in the volar forearm fascia through the floor of FCR tendon sheath using tenotomy scissors under direct visualization. I identified the interval between the radial artery and the flexor tendons. This interval was developed further with my index finger, releasing some of the muscular fibers of the flexor pollicis longus. A dull weatlander retractor was then placed. I then created an ulnarly based flap of the pronator quadratus by releasing the radial and distal edges using a 15. Blade. A Ly elevator was used to elevate the pronator quadratus from the volar surface of the distal radius. This then revealed to us our distal radius fracture. An open reduction was then performed on our distal radius fracture. This was a 3 part intra-articular distal radius fracture, that was also translated dorsally about 95%.. The more central fragment of the volar cortex was rotated 90 degrees. I then placed a short standard 3 hole Accu Med volar locking plate on the volar surface of the distal radius. After performing a satisfactory initial open reduction, I placed 2 K-wires through the distal aspect of the plate and into the distal radius. This was assessed using fluoroscopic images. I was sat isfied with the placement of our plate. I then placed 6 X 2.3 mm locking screws/pegs in the distal aspect of the plate and distal radius by 1st drilling bicortically with a 1.8 mm drill bit, measuring with a depth gauge, and placing the appropriate length locking screws/pegs. The placement of our plate and screws was then assessed again using fluoroscopic images. The once satisfied with the placement of the volar locking plate and screws on the distal aspect of the distal radius, the plate was then reduced to the shaft of the radius. I then placed 3 3.5 mm cortical screws to the proximal aspect of the plate and into the shaft of the radius. This was done by 1st drilling bicortically with a 2.8 mm drill bit, measuring with a depth gauge, and placing the appropriate length screw. Final radiographs were then obtained. The DRUJ was assessed and found to be stable on exam. I was satisfied with our reduction and placement of all implants. At this point the wound was irrigated with normal saline. The pronator quadratus was reduced back over the volar locking plate using some 3-0 Vicryl suture material. The tourniquet was then deflated and hemostasis was obtained with a brief period of local pressure and bipolar monopolar electrocautery. The subcutaneous layer was then reapproximated using some 4-0 Vicryl suture, and the skin edges were reapproximated using some 5 0 Prolene suture. The wound was then infiltrated with some 1% lidocaine with epinephrine postop pain control. A sterile dressing and a short dorsal splint allowing for active flexion and extension of the digits was applied. The patient appears to have tolerated the procedure well and with no complications. All digits were well vascularized conclusion of the case.
[2024-06-29 08:15] VITALS: BMI 27.4
[2024-06-29 08:50] VITALS: BP 156/78; PULSE 72; RESP 16; TEMP 36.7; O2SAT 97
[2024-06-29] MEDS: Lactated Ringers 1,000 ML 100 ML IVCONT (08:52)
--- NOTE | 2024-06-29 10:19 | PC.NURSE ---
Patient in preop. History of low potassium with hospital stay in October of this year, isolated incident. Dr. Rothman made aware. Notes in system regarding this event reviewed by MD. Patient has followed up with PCP in February and per him lab work was taken and labs were normal . Dr. Rothman made aware. No need for repeat labs at this time. Okay to proceed with surgery.
--- NOTE | 2024-06-29 10:30 | MHC.SHP ---
Pre-Procedural Eval Section A - 24 Hr Update-Section A only Date of Service: 06/29/24 The patient is an INPATIENT: No Changes since office visit: No Cold of Flu in the past 2 weeks, No New Medical Problems, No Changes in Medication and No Patient answered all questions The patient has been examined within 24 hours of the surgical procedure. The History & Physical has been completed within 30 days and I have reviewed it.: Yes Section B - Complete if H&P > 30 days Chief Complaint: Unspecified fracture of the lower end of L radius Allergies: Allergies Allergy/AdvReac Type Severity Reaction Status Date / Time amoxicillin AdvReac Severe Gastrointestinal Verified 06/29/24 08:21 Upset Exam Exam Comment: Seen and evaluated by me in preop hold. He had normal sensation to the tips of the fingers His wrist was splinted. Plan I have reviewed the history and physical and performed a pertinent physical examination on my patient. No changes have occurred unless specified. The risks and benefits of operative treatment were discussed with the patient and the patient wishes to proceed with surgery. These risks include, but are not limited to risk of damage to blood vessels, nerves, tendons, infection, recurrence, incomplete relief of preoperative symptoms, persistent pain, possible need for further surgery and the risks associated with regional blocks and anesthesia. The plan is to take the patient to the operating room for the following procedures: 1. Left distal radius ORIF 2. [ ] All of the preoperative paperwork including the consent was filled out today. All the patient's questions were answered. Time Spent With Patient Time: Total time managing care of this patient today ____ minutes.
[2024-06-29 13:24] VITALS: BP 143/82; PULSE 88; RESP 16; TEMP 36.1; O2SAT 97
[2024-06-29 13:25] VITALS: BP 135/81; PULSE 71; RESP 16; O2SAT 97
[2024-06-29 13:30] VITALS: BP 143/94; PULSE 103; RESP 16; O2SAT 97
[2024-06-29 13:35] VITALS: BP 160/99; PULSE 91; RESP 16; O2SAT 96
[2024-06-29 13:50] VITALS: BP 146/91; PULSE 98; RESP 16; TEMP 36.1; O2SAT 96
== END 2024-06-29 14:29 | disposition home or self-care (01) ==
PROVIDERS: Visit Provider Orthopaedic Surgery
PROC: (CPT 25609; principal; 2024-06-29 09:50)
DX: S52.502A Unspecified fracture of the lower end of left radius, initial encounter for closed fracture (principal); W10.8XXA Fall (on) (from) other stairs and steps, initial encounter; Y93.01 Activity, walking, marching and hiking; Y92.69 Other specified industrial and construction area as the place of occurrence of the external cause; Y99.8 Other external cause status; G51.0 Bell's palsy; F90.9 Attention-deficit hyperactivity disorder, unspecified type; K21.9 Gastro-esophageal reflux disease without esophagitis; F11.11 Opioid abuse, in remission; Z79.899 Other long term (current) drug therapy; Z88.1 Allergy status to other antibiotic agents; Z87.891 Personal history of nicotine dependence
CPT/HCPCS: 25609; C1713; J0131; J0665; J0690; J1100; J2250; J2405; J2704; J2795; J3010

== ENCOUNTER → 2024-06-29 07:29 | Outpatient (BNV) | payer OTHER, SELFPAY | PROVIDERS: Visit Provider Orthopaedic Surgery | DX: S52.572A Other intraarticular fracture of lower end of left radius, initial encounter for closed fracture (principal) | CPT/HCPCS: 25609 ==

== ENCOUNTER 2024-07-14 08:44 | Outpatient (REF) | payer OTHER, SELFPAY ==
--- NOTE | ~2024-07-14 | XR_ITS ---
EXAMINATION: XR WRIST LEFT 3 VIEWS CLINICAL INFORMATION: Pain in left wrist M25.532. Out of splint. COMPARISON: XR Left wrist 06/26/2024 TECHNIQUE: PA, lateral, and oblique views of the left wrist. FINDINGS: A previously seen cast overlying the left wrist is no longer evident. Anterior fixation plate and screws are present across the previously seen, comminuted fracture involving the distal left radial metaphysis. Fracture fragments appear in gross anatomic alignment. Avulsion fracture of the ulnar styloid remains. No definite bony callus formation is seen. No other fracture or dislocation is appreciated. No lytic or sclerotic bony lesion is seen. Joint spaces appear maintained. XR/XR wrist LT min 3V IMPRESSION: Findings as above. Electronically signed by: Brodie Garcia MD 09/25/2024 10:36 AM YAIR
== END 2024-07-14 08:45 | disposition home or self-care (01) ==
LOC: HO.HOSX 08:44
DX: M25.532 Pain in left wrist (principal); S52.502D Unspecified fracture of the lower end of left radius, subsequent encounter for closed fracture with routine healing; S52.612D Displaced fracture of left ulna styloid process, subsequent encounter for closed fracture with routine healing; Z98.890 Other specified postprocedural states
CPT/HCPCS: 29075; 73110; 99212

== ENCOUNTER 2024-07-14 10:18 | Outpatient (AMB) | payer OTHER, SELFPAY ==
--- NOTE | 2024-07-14 10:19 | MHC.OFFVIS ---
Vital Signs 07/14/24 10:27 Height 5 ft 8 in Weight 170 lb BMI 25.8 Handedness Right Intake Visit Reasons: PO LT distal radius ORIF 06/29/24 AR Intake Note: Xavi is a 38 year old right hand dominant male who presents today post operatively s/p Left Distal radius fracture ORIF, 3 part intra-articular DOS: 06/29/2024 w/ Dr Lynch. Patient reports he does have pain if he elevates his arm and keeps it rested but with any kind of movement of the wrist he reports extreme pain. Allergies amoxicillin Adverse Reaction (Severe, Verified 07/14/24 10:28) Gastrointestinal Upset HPI HPI PO LT distal radius ORIF 06/29/24 AR: Details: Patient is a 38-year-old male who presents for postoperative evaluation status post left distal radius ORIF, DOS 06/29/2024. Today, the patient reports that he is feeling much better, and that his pain has decreased significantly since date of injury. However, the patient does report that he still experiences significant discomfort particularly with prono-supination of the left wrist. The patient reports that he has been able to get close to making a closed fist with the left hand, but reports that he does experience discomfort in his wrist when getting fully to a closed fist. Patient denies any numbness or tingling in the left hand. No other acute complaints or concerns at this time. FORMERLY [facility], [facility] Medical History Culp's palsy History of opioid abuse GERD (gastroesophageal reflux disease) ADHD Surgical History History of dental surgery Social History Are you a primary certified caregiver to a significant other at home: Yes Do you presently have visiting nurse or other home services: No Patient Tobacco Use Status: Former Tobacco user Tobacco use type: Cigarette Years Smoked: 4 Second Hand Smoke Exposure: No service: No Review of Systems Const All systems reviewed & are unremarkable except as noted in HPI and below Physical Exam Vital Signs: BMI result Body Mass Index 25.8 Extrem Other: Patient is alert, oriented, and in no acute distress. Neuro: Normal sensation of the tips of all digits of the left hand at this time Vascular: Cap refill brisk Pain: Patient reports no tenderness to palpation about the incision site on the volar left wrist Patient reports no tenderness to palpation of the radial styloid Patient does report moderate tenderness to palpation of the ulnar styloid in the location of the ulnar styloid fracture No anatomical snuffbox tenderness or other tenderness in the left hand noted Patient does report discomfort in the wrist when attempting to make a closed fist ROM: With encouragement, the patient is able to make a closed fist and extend all digits of the left hand fully Skin: Well-approximated incision site on the volar left wrist noted No evidence of infection General: Old, yellowed ecchymosis noted on the volar left wrist No erythema, or evidence of infection. Psych: Appears grossly normal Affect normal Attitude cooperative Office Procedures Casting/Splints 20183-Hglcbmo Cast Application Procedure code (CPT) selection complete Results Reviewed Results Reviewed: X-rays obtained in the office today and independently reviewed by me, Clay Amin PA-C, demonstrate well approximated fracture of the left distal radius with orthopedic hardware in place and in satisfactory clinical alignment. There is also a minimally displaced ulnar styloid fracture. Assessment & Plan Assessment & Plan (1) Closed fracture of left distal radius: Code(s): S52.502A - Unspecified fracture of the lower end of left radius, initial encounter for closed fracture Category: Medical (2) Displaced fracture of left ulna styloid process, subsequent encounter for closed fracture with routine healing: Code(s): S52.612D - Displaced fracture of left ulna styloid process, subsequent encounter for closed fracture with routine healing Category: Medical Plan 1. Left distal radius fracture status post ORIF DOS 06/29/2024 2. Left ulnar styloid fracture Date of injury 06/25/2024 Patient appears to be recovering well postoperatively Patient is educated about the typical recovery course At this time, sutures are removed, and Steri-Strips were applied Patient was placed in a short-arm cast to be worn for the next 3 weeks Patient is educated about typical cast care and precautions Patient is educated that he can return to work, as long as he is in an environment where he can keep the cast clean, dry, intact, and can adhere to a strict 2 lb weight limit in his left hand Patient understands this and is amenable to this plan Patient will follow-up in 3 weeks with repeat x-rays, sooner with any acute concerns Orders: Orders XR wrist LT min 3V Today M25.532 - Pain in left wrist Coding Level of Care Code Global (34293) Diagnoses Closed fracture of left distal radius S52.502A Displaced fracture of left ulna styloid process, subsequent encounter for closed fracture with routine healing S52.612D CPT Codes Casting - CPT: 13274-Faiwqqp Cast Application ([id number])
[2024-07-14 10:27] VITALS: BMI 25.8
== END 2024-07-14 11:38 | disposition home or self-care (01) ==
DX: S52.502D Unspecified fracture of the lower end of left radius, subsequent encounter for closed fracture with routine healing (principal); S52.612D Displaced fracture of left ulna styloid process, subsequent encounter for closed fracture with routine healing; W10.8XXA Fall (on) (from) other stairs and steps, initial encounter; Z04.2 Encounter for examination and observation following work accident
CPT/HCPCS: 29075; 99024

== ENCOUNTER 2024-07-15 08:24 | Outpatient (AMB) | payer OTHER, SELFPAY ==
--- NOTE | 2024-07-15 08:29 | A.OFFVIS_ITS ---
Intake Visit Reasons: PO: cast change LT distal radius ORIF 06/29/24 AR Allergies amoxicillin Adverse Reaction (Severe, Verified 07/14/24 10:28) Gastrointestinal Upset HPI HPI PO: cast change LT distal radius ORIF 06/29/24 AR: Details: 38-year-old male who returns to the office today for post-op left wrist ORIF, 06/29/[address] Lynch. He presents today for a cast change. 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 no erythema, no significant swelling. NVI. Office Procedures Casting/Splints 25705-Pvxn/Wrist Cast Application Procedure code (CPT) selection complete Assessment & Plan Assessment & Plan (1) Closed fracture of left distal radius: Code(s): S52.502A - Unspecified fracture of the lower end of left radius, initial encounter for closed fracture Category: Medical Qualifiers: Encounter type: subsequent encounter Fracture morphology: other fractur e Fracture healing: with routine healing Qualified Code(s): S52.592D - Other fractures of lower end of left radius, subsequent encounter for closed fracture with routine healing (2) Displaced fracture of left ulna styloid process, subsequent encounter for closed fracture with routine healing: Code(s): S52.612D - Displaced fracture of left ulna styloid process, subsequent encounter for closed fracture with routine healing Category: Medical Plan New short arm cast was applied today. He will perform no lifting more than cellphone. He will follow-up on 08/04 with Clay Amin as previously planned. Patient Instructions: Scribed for Yamilet De Leon PA-C, by maryan Antunez scribe, on 07/15/2024 at 8:30 AM EST.? I, Yamilet De Leon PA-C, have personally reviewed and agree with the information entered by the scribe. Coding Level of Care Code Global (68576) Diagnoses Other closed fracture of distal end of left radius with routine healing, subsequent encounter S52.592D Encounter type: subsequent encounter Fracture morphology: other fracture Fracture healing: with routine healing Displaced fracture of left ulna styloid process, subsequent encounter for closed fracture with routine healing S52.612D CPT Codes Casting - CPT: 32317-Sjtf/Wrist Cast Application ([id number])
== END 2024-07-15 09:00 | disposition home or self-care (01) ==
PROVIDERS: Visit Provider Physician Assistant
DX: S52.592D Other fractures of lower end of left radius, subsequent encounter for closed fracture with routine healing (principal); S52.612D Displaced fracture of left ulna styloid process, subsequent encounter for closed fracture with routine healing; Z04.2 Encounter for examination and observation following work accident
CPT/HCPCS: 29085; 99024

== ENCOUNTER → 2024-07-15 08:24 | Outpatient (BNVA) | payer OTHER, SELFPAY | PROVIDERS: Visit Provider Physician Assistant | DX: S52.592D Other fractures of lower end of left radius, subsequent encounter for closed fracture with routine healing (principal); S52.612D Displaced fracture of left ulna styloid process, subsequent encounter for closed fracture with routine healing | CPT/HCPCS: 29085; 99212 ==

== ENCOUNTER 2024-08-03 16:32 | Outpatient (REF) | payer OTHER, SELFPAY | END 2024-08-03 16:33 | disposition home or self-care (01) | LOC: HO.HOSX 16:32 | DX: Z13.89 Encounter for screening for other disorder (principal) ==

== ENCOUNTER 2024-08-04 10:32 | Outpatient (AMB) | payer OTHER, SELFPAY ==
--- NOTE | 2024-08-04 10:39 | MHC.OFFVIS ---
Intake Visit Reasons: PO LT distal radius ORIF 06/29/24 AR Intake Note: Xavi is a 38 year old right hand dominant male who presents today post operatively s/p Left Distal radius fracture ORIF, 3 part intra-articular DOS: 06/29/2024 w/ Dr Lynch. Pt states he is feeling well. Pt states his ROM has improved a lot. Pt denies any pain except in his wrist but states the pain is minimal. Allergies amoxicillin Adverse Reaction (Severe, Verified 08/04/24 10:54) Gastrointestinal Upset HPI HPI PO LT distal radius ORIF 06/29/24 AR: Details: Patient is a 39-year-old presents postoperative status post left distal radius ORIF, DOS 06/29/24. Today, the patient reports that he is feeling well, and that his hand range of motion has improved significantly since last visit. Patient also states that his pain is very minimal at baseline, and has improved significantly since last visit. Patient reports that after the cast change previously performed in our office, he was able to keep the cast clean dry and intact at all times. Patient denies any numbness or tingling in the left hand. No other acute complaints or concerns at this time. [facility] Medical History Culp's palsy History of opioid abuse GERD (gastroesophageal reflux disease) ADHD Surgical History History of dental surgery Social History Are you a primary child care center administrator to a significant other at home: Yes Do you presently have visiting nurse or other home services: No Patient Tobacco Use Status: Former Tobacco user Tobacco use type: Cigarette Years Smoked: 4 Second Hand Smoke Exposure: No service: No Physical Exam Extrem Other: Patient is alert, oriented, and in no acute distress. Neuro: Normal sensation of the tips of all digits of the left hand at this time Vascular: Cap refill brisk Pain: Patient reports no tenderness to palpation about the incision site on the volar left wrist Patient reports no tenderness to palpation of the radial styloid Patient reports no tenderness to palpation of the ulnar styloid No anatomical snuffbox tenderness or other tenderness in the left hand noted Patient report no discomfort in the wrist when attempting to make a closed fist ROM: The patient is able to make a closed fist and extend all digits of the left hand fully Skin: Well-approximated and well-healed incision site on the volar left wrist noted No evidence of infection General: No ecchymosis noted No erythema, or evidence of infection. Psych: Appears grossly normal Affect normal Attitude cooperative Results Reviewed Results Reviewed: X-rays obtained in the office today and independently reviewed by me, Clay Amin PA-C, demonstrate well approximated fracture of the left distal radius with orthopedic hardware in place and in satisfactory clinical alignment with evidence of interval bony healing. There is also a minimally displaced ulnar styloid fracture with evidence of improved alignment and interval bony healing Assessment & Plan Assessment & Plan (1) Displaced fracture of left ulna styloid process, subsequent encounter for closed fracture with routine healing: Code(s): S52.612D - Displaced fracture of left ulna styloid process, subsequent encounter for closed fracture with routine healing Category: Medical (2) Closed fracture of left distal radius: Code(s): S52.502A - Unspecified fracture of the lower end of left radius, initial encounter for closed fracture Category: Medical Qualifiers: Encounter type: subsequent encounter Fracture healing: with routine healing Fracture morphology: other fracture Qualified Code(s): S52.592D - Other fractures of lower end of left radius, subsequent encounter for closed fracture with routine healing Plan 1. Fracture of left distal radius status post ORIF DOS 06/29/2024 Patient appears to be recovering well postoperatively Patient is educated about the typical recovery course At this time, patient was removed from his short-arm cast, and due to lack of tenderness, he can be placed into a Velcro wrist splint to be worn with daytime activities Patient is also referred to occupational therapy for range of motion and strengthening of the left wrist and hand Patient understands this is amenable to this plan Patient will follow-up in 4 weeks with repeat x-rays for reassessment, sooner with any acute concerns Orders: Orders XR wrist LT w scaphoid 08/04/24 M25.532 - Pain in left wrist OT Evaluation and Treatment 08/04/24 S52.612D - Displaced fracture of left ulna styloid process, subsequent encounter for closed fracture with routine healing, S52.592D - Other fractures of lower end of left radius, subsequent encounter for closed fracture with routine healing Coding Level of Care Code Global (46524) Diagnoses Displaced fracture of left ulna styloid process, subsequent encounter for closed fracture with routine healing S52.612D Other closed fracture of distal end of left radius with routine healing, subsequent encounter S52.592D Encounter type: subsequent encounter Fracture healing: with routine healing Fracture morphology: other fracture
== END 2024-08-04 11:56 | disposition home or self-care (01) ==
DX: S52.612D Displaced fracture of left ulna styloid process, subsequent encounter for closed fracture with routine healing (principal); S52.592D Other fractures of lower end of left radius, subsequent encounter for closed fracture with routine healing
CPT/HCPCS: 99024

== ENCOUNTER 2024-08-04 12:30 | Outpatient (REF) | payer OTHER, SELFPAY | END 2024-08-04 12:31 | disposition home or self-care (01) | LOC: HO.HOSX 12:30 | DX: M25.532 Pain in left wrist (principal) | CPT/HCPCS: 73110 ==

== ENCOUNTER 2024-09-02 10:01 | Outpatient (AMB) | payer OTHER, SELFPAY ==
--- NOTE | 2024-09-02 10:02 | A.OFFVIS_ITS ---
Intake Visit Reasons: PO LT distal radius ORIF 06/29/24 AR Intake Note: Xavi is a 38 year old right hand dominant male who presents today post operatively s/p Left Distal radius fracture ORIF, 3 part intra-articular DOS: 06/29/2024 w/ Dr Lynch. Pt states he is feeling well and started doing OT today and will be going twice a week to start. Pt states his ROM is greatly improving and states that OT said things are healing well. OT states he should wear the brace at night. Allergies amoxicillin Adverse Reaction (Severe, Verified 09/02/24 10:03) Gastrointestinal Upset HPI HPI PO LT distal radius ORIF 06/29/24 AR: Details: Patient is a 39-year-old male who presents for postoperative evaluation and [id number] check status post left distal radius fracture and ORIF, DOS 0 06/29/24. Patient states that his symptoms have improved dramatically since previous evaluation, and his range of motion has improved, despite the fact that his 1st OT evaluation was today. Patient states that he has been wearing the Velcro wrist splint with daytime activities, but OT has told him that he should only wear these at night. Patient denies any numbness or tingling in the left upper extremity. No repeat injury. No other acute complaints or concerns at this time. [facility] Medical History Clup's palsy History of opioid abuse GERD (gastroesophageal reflux disease) ADHD Surgical History History of dental surgery Social History Are you a primary resident care associate to a significant other at home: Yes Do you presently have visiting nurse or other home services: No Patient Tobacco Use Status: Former Tobacco user Tobacco use type: Cigarette Years Smoked: 4 Second Hand Smoke Exposure: No service: No Physical Exam Extrem Other: Patient is alert, oriented, and in no acute distress. Neuro: Normal sensation of the tips of all digits of the left hand at this time Vascular: Cap refill brisk Pain: Patient reports no tenderness to palpation about the incision site on the volar left wrist Patient reports no tenderness to palpation of the radial styloid Patient reports no tenderness to palpation of the ulnar styloid No anatomical snuffbox tenderness or other tenderness in the left hand noted Patient report no discomfort in the wrist when attempting to make a closed fist ROM: The patient is able to make a closed fist and extend all digits of the left hand fully Skin: Well-approximated and well-healed incision site on the volar left wrist noted No evidence of infection General: No ecchymosis noted No erythema, or evidence of infection. Psych: Appears grossly normal Affect normal Attitude cooperative Assessment & Plan Assessment & Plan (1) Displaced fracture of left ulna styloid process, subsequent encounter for closed fracture with routine healing: Code(s): S52.612D - Displaced fracture of left ulna styloid process, subsequent encounter for closed fracture with routine healing Category: Medical (2) Closed fracture of left distal radius: Code(s): S52.502A - Unspecified fracture of the lower end of left radius, initial encounter for closed fracture Category: Medical Qualifiers: Encounter type: subsequent encounter Fracture morphology: other fracture Fracture healing: with routine healing Qualified Code(s): S52.592D - Other fractures of lower end of left radius, subsequent encounter for closed fracture with routine healing Plan 1. Fracture of left distal radius status post ORIF DOS 06/29/2024 Patient appears to be recovering well postoperatively Patient is educated about the typical recovery course At this time, patient is advised that he should continue to wear his Velcro wrist splint, but as advised by occupational therapy Patient is also educated to continue with occupational therapy for range of motion and strengthening of the left wrist and hand Patient understands this is amenable to this plan Patient will follow-up as needed with any acute concerns Coding Level of Care Code Global (90710) Diagnoses Displaced fracture of left ulna styloid process, subsequent encounter for closed fracture with routine healing S52.612D Other closed fracture of distal end of left radius with routine healing, subsequent encounter S52.592D Encounter type: subsequent encounter Fracture morphology: other fracture Fracture healing: with routine healing
== END 2024-09-02 10:20 | disposition home or self-care (01) ==
PROVIDERS: PCP Internal Medicine
DX: S52.612D Displaced fracture of left ulna styloid process, subsequent encounter for closed fracture with routine healing (principal); S52.592D Other fractures of lower end of left radius, subsequent encounter for closed fracture with routine healing
CPT/HCPCS: 99024

== ENCOUNTER 2024-10-02 08:05 | Outpatient (RCR) | payer OTHER, SELFPAY ==
--- NOTE | 2024-09-02 14:26 | MHC.OT.EP ---
[address] [phone] Occupational Therapy Plan of Care Patient Name: Xavi Osei Date of Evaluation: 09/02/24 Diagnosis: (L) displaced ulnar styloid fx ORIF Pain Location: No pain at rest, intermittent achy with use at L distal wrist Pain Score: 2 Pain Scale Used: Numeric (0 - 10) Aggravating Factors: Lifting/moving ex: grocery shopping / bringing in grocery bags Alleviating Factors: Aleve 1x day Assessment: 39 y/o M 9 weeks s/p ORIF (L) ulna presents with decreased strength in (L) hand, decreased AROM in the (L) wrist, and sensitivity over incision site. Pt has been progressing well reporting no pain with functional activities but primarily is mod(I) w/ADL/IADL tasks using one handed compensatory strategies to complete the task. 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 Pt will benefit from skilled OT services to increase strength, ROM and decrease scar sensitivity. Pt is seeing CRISTAL Grimm on 09/02/24 for follow up. 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 to promote work activity engagement Pt will demonstrate 80*of supination to prepare for IADL engagement Pt will tolerate at least 20lbs of floor to waist carrying to promote work task participation Treatment Plan: Therapeutic Exercise Therapeutic Activity Home Exercise Program Patient Education Desensitization/Sensory Re-ed Edema Control ADL Training Ultrasound Paraffin Fluidotherapy MHP Cold Packs Joint Mobilization Soft Tissue Mobilization Kinesiotaping Other (see comments) Skilled OT and treat Electronically Signed By: Juli Finley OT/s ; Marlen Prabhakar OTR/Mariah Please Sign and return to therapist. Thank you once again for your referral.
--- NOTE | 2024-10-05 10:53 | MHC.OT.DC ---
[address] [phone] F: [phone] Occupational Therapy Discharge Note Patient Name: Xavi Chavez Sea Provider: Clay Amin Diagnosis: (L) displaced ulnar styloid fx ORIF Date of Surgery: 06/29/24 Date of Evaluation: 09/02/24 Date of Discharge: Treatments to Date: 8 Cancellations to Date: No Shows to Date: Discharge Status: Achieved Goals Improved Function Independent with HEP Discharge Summary: Patient is d/c'd from skilled therapy as he has achieved his maximal potential in therapy. He reports 0/10 pain and that his wrist feels normal and is using it for daily tasks. Patient and therapist were in agreement on d/c plan. Electronically Signed By: OCTAVIA Ty CLT Reviewed/agree with student documentation: Yes Therapist: OCTAVIA Ty CLT Please Sign and return to therapist, thank you for your referral.
== END 2024-10-05 10:54 | disposition home or self-care (01) ==
LOC: HO.OT 08:05
PROVIDERS: PCP Internal Medicine
DX: S52.612D Displaced fracture of left ulna styloid process, subsequent encounter for closed fracture with routine healing (principal); S52.592D Other fractures of lower end of left radius, subsequent encounter for closed fracture with routine healing
CPT/HCPCS: 97110; 97140; 97166